=== PATIENT | female | born 1970 | race African-American/Black ===

== ENCOUNTER 2021-12-19 13:18 | Emergency (ER) | payer SELFPAY ==
[~2021-12-19] VITALS: Ht 167 cm; Wt 56.6 kg
[2021-12-19] MEDS ORDERED: RT-ALBUTEROL SULF 2.5 MG/3 ML PRE-MIX VIAL ONE (13:27)
[2021-12-19] MEDS ORDERED: RT-ALBUTEROL/IPRATROPIUM 3 ML (DUONEB) VIAL ONE (13:27)
[2021-12-19] MEDS ORDERED: RT-ALBUTEROL/IPRATROPIUM 3 ML (DUONEB) VIAL INH ONE (13:30)
[2021-12-19] MEDS ORDERED: RT-ALBUTEROL SULF 2.5 MG/3 ML PRE-MIX VIAL INH STA (13:30)
[2021-12-19] MEDS ORDERED: NS IV 1000 ML 1,000 ML IV SCH (13:30)
[2021-12-19] MEDS ORDERED: methylPREDNISolone 125 MG (Solu-MEDROL) VIAL IV STA (13:30)
[2021-12-19] MEDS ORDERED: morphine INJ 10 MG/ML 1ML (SYR OR VIAL) IVP STA (13:30)
--- NOTE | 2021-12-19 13:30 | ED Respiratory ---
General Chief Complaint: Respiratory Problems Stated Complaint: CHEST PAIN - COUGH Source: patient Exam Limitations: no limitations History of Present Illness Date Seen by Provider: Dec 19, 2021 Time Seen by Provider: 13:15 Initial Comments Patient to ER by EMS with chief complaint of couple days progressively worsening shortness of air coughing fits. She been using ykef-uuk-wdxrymi cough medicines and Tylenol for her headache. She has history of COPD. She is not been on steroids recently. Has not been on antibiotics. No fevers or chills for her or EMS. She maintain oxygen saturations in the upper 90s to 100% on room air per EMS however she is having nonstop coughing and strong expiratory wheezes. She has an albuterol proair inhaler which she has been using without success. She was given a DuoNeb en route which she says helped very minimally. She is also having pain up under her left ribs anteriorly. No history of heart disease. No nausea vomiting diarrhea. No known sick contacts. She does not have a primary care doctor locally. Allergies and Home Medications Allergies Coded Allergies: No Known Drug Allergies (Unverified , 12/19/21) Patient Home Medication List Home Medication List Reviewed: Yes Review of Systems Review of Systems Constitutional: No chills, No fever; malaise, weakness EENTM: No ear discharge, No ear pain Respiratory: cough, phlegm, short of breath, wheezing Cardiovascular: see HPI, chest pain; No edema, No Hx of Intervention, No palpitations Gastrointestinal: No abdominal pain, No nausea, No vomiting Genitourinary: No decreased output, No discharge, No dysuria Musculoskeletal: No back pain, No joint pain Skin: No change in color, No dryness, No lesions All Other Systems Reviewed Negative Unless Noted: Yes Past Ccbtyqf-Uzdpyr-Twokkf Hx Patient Social History Tobacco Use?: Yes Tobacco type used: Cigarettes Smoking Status: Current Everyday Smoker Use of E-Cig and/or Vaping dev: No Substance use?: No Alcohol Use?: Yes Physical Exam Vital Signs - First Documented 12/19/21 12/19/21 13:18 14:53 Temp 37.0 Pulse 102 Resp 24 B/P (MAP) 125/106 (112) Pulse Ox 100 O2 Delivery Room Air O2 Flow Rate 0 FiO2 21 Capillary Refill : Height: '" Weight: lbs. oz. kg; BMI Method: General Appearance: WD/WN, moderate distress Eyes: Bilateral Eye Normal Inspection, Bilateral Eye PERRL, Bilateral Eye EOMI HEENT: PERRL/EOMI, normal ENT inspection, TMs normal, pharynx normal Neck: non-tender, full range of motion, supple, normal inspection Respiratory: No chest non-tender (Left anterior lower chest and ribs are tender to palpation); respiratory distress (Moderate with tripoding, rocking, pursed lip breathing, 40 breaths a minute maintaining oxygen saturation of 100%), accessory muscle use, rales (Bibasilar), wheezing, expiration (Severely prolonged) Cardiovascular: normal peripheral pulses, regular rate, rhythm, no edema, tachycardia (130) Gastrointestinal: normal bowel sounds, non tender (No tenderness especially in the left upper quadrant or epigastric region.), soft Extremities: non-tender, normal inspection, normal capillary refill Neurologic/Psychiatric: lapidarist II-XII nml as tested, no motor/sensory deficits, alert; No normal mood/affect (Anxious); oriented x 3 Focused Exam Lactate Level 12/19/21 13:22: Lactic Acid Level 1.97 Lactic Acid Level Laboratory Tests Test 12/19/21 13:22 Lactic Acid Level 1.97 MMOL/L (0.50-2.00) Progress/Results/Core Measures Suspected Sepsis SIRS Temperature: Pulse: Respiratory Rate: Laboratory Tests 12/19/21 13:22: White Blood Count 5.1 Blood Pressure / Mean: 12/19/21 13:22: Lactic Acid Level 1.97 Laboratory Tests 12/19/21 13:22: Creatinine 1.21, INR Comment 1.3, Platelet Count 135, Total Bilirubin 0.6 Results/Orders Lab Results Laboratory Tests Test 12/19/21 13:22 12/19/21 13:34 12/19/21 13:45 Range/Units White Blood Count 5.1 4.3-11.0 10^3/uL Red Blood Count 3.44 L 3.80-5.11 10^6/uL Hemoglobin 10.2 L 11.5-16.0 g/dL Hematocrit 31 L 35-52 % Mean Corpuscular Volume 89 80-99 fL Mean Corpuscular Hemoglobin 30 25-34 pg Mean Corpuscular Hemoglobin Concent 33 32-36 g/dL Red Cell Distribution Width 17.4 H 10.0-14.5 % Platelet Count 135 130-400 10^3/uL Mean Platelet Volume 8.6 L 9.0-12.2 fL Immature Granulocyte % (Auto) 0 % Neutrophils (%) (Auto) 37 L 42-75 % Lymphocytes (%) (Auto) 49 H 12-44 % Monocytes (%) (Auto) 13 H 0-12 % Eosinophils (%) (Auto) 1 0-10 % Basophils (%) (Auto) 0 0-10 % Neutrophils # (Auto) 1.9 1.8-7.8 10^3/uL Lymphocytes # (Auto) 2.5 1.0-4.0 10^3/uL Monocytes # (Auto) 0.7 0.0-1.0 10^3/uL Eosinophils # (Auto) 0.1 0.0-0.3 10^3/uL Basophils # (Auto) 0.0 0.0-0.1 10^3/uL Immature Granulocyte # (Auto) 0.0 0.0-0.1 10^3/uL Neutrophils % (Manual) 42 % Lymphocytes % (Manual) 43 % Monocytes % (Manual) 14 % Band Neutrophils 1 % Polychromasia SLIGHT Anisocytosis MODERATE Spherocytes SLIGHT Target Cells MODERATE Prothrombin Time 16.4 H 12.2-14.7 SEC INR Comment 1.3 0.8-1.4 Activated Partial Thromboplast Time 35 24-35 SEC Sodium Level 137 135-145 MMOL/L Potassium Level 4.4 3.6-5.0 MMOL/L Chloride Level 103 98-107 MMOL/L Carbon Dioxide Level 20 L 21-32 MMOL/L Anion Gap 14 5-14 MMOL/L Blood Urea Nitrogen 30 H 7-18 MG/DL Creatinine 1.21 0.60-1.30 MG/DL Estimat Glomerular Filtration Rate 54 BUN/Creatinine Ratio 25 Glucose Level 86 70-105 MG/DL Lactic Acid Level 1.97 0.50-2.00 MMOL/L Calcium Level 9.0 8.5-10.1 MG/DL Corrected Calcium 9.2 8.5-10.1 MG/DL Total Bilirubin 0.6 0.1-1.0 MG/DL Aspartate Amino Transf (AST/SGOT) 73 H 5-34 U/L Alanine Aminotransferase (ALT/SGPT) 51 0-55 U/L Alkaline Phosphatase 102 40-136 U/L Troponin I < 0.028 <0.028 NG/ML Total Protein 8.1 6.4-8.2 GM/DL Albumin 3.8 3.2-4.5 GM/DL Blood Gas Puncture Site LEFT RADIAL Blood Gas Patient Temperature 37 Arterial Blood pH 7.33 *L 7.37-7.43 Arterial Blood Partial Pressure CO2 46 H 35-45 MMHG Arterial Blood Partial Pressure O2 76 L 79-93 MMHG Arterial Blood HCO3 23 23-27 MMOL/L Arterial Blood Total CO2 24.7 21.0-31.0 MMOL/L Arterial Blood Oxygen Saturation 94 94-100 % Arterial Blood Base Excess -1.8 -2.5-2.5 MMOL/L Ellis Test POSITIVE Blood Gas Ventilator Setting NO Blood Gas Inspired Oxygen 8 L Influenza Type A (RT-PCR) Not Detected Not Detecte Influenza Type B (RT-PCR) Not Detected Not Detecte SARS-CoV-2 RNA (RT-PCR) Not Detected Not Detecte My Orders Orders - JANE ANDRADE Pd/C, Chest Physio Therapy (12/19/21 13:24) Chest 1 View, Ap/Pa Only (12/19/21 13:24) Cbc With Automated Diff (12/19/21 13:24) Comprehensive Metabolic Panel (12/19/21 13:24) Blood Culture (12/19/21 13:24) Sputum Culture (12/19/21 13:24) Urinalysis (12/19/21 13:24) Urine Culture (12/19/21 13:24) Protime With Inr (12/19/21 13:24) Partial Thromboplastin Time (12/19/21 13:24) Ed Iv/Invasive Line Start (12/19/21 13:24) Ed Iv/Invasive Line Start (12/19/21 13:24) Ekg Tracing (12/19/21 13:24) Troponin I [place] (12/19/21 13:24) Vital Signs Adult Sepsis Patie Q15M (12/19/21 13:24) O2 (12/19/21 13:24) Remove Rings In Anticipation O (12/19/21 13:24) Lactic Acid Analyzer (12/19/21 13:24) Influenza A And B By Pcr (12/19/21 13:24) Covid 19 Inhouse Test (12/19/21 13:24) Albuterol/Ipra Inhalation Soln (Duoneb I (12/19/21 13:27) Albuterol Pre-Mix Nebs (Rt) (Proventil (12/19/21 13:27) Ed Iv/Invasive Line Start (12/19/21 13:30) Ns Iv 1000 Ml (Sodium Chloride 0.9%) (12/19/21 13:30) Albuterol Pre-Mix Nebs (Rt) (Proventil (12/19/21 13:30) Albuterol/Ipra Inhalation Soln (Duoneb I (12/19/21 13:30) Methylprednisolone Sod Succ (Solu-Medrol (12/19/21 13:30) Svn Small Volume Nebulizer (12/19/21 13:30) Morphine Injection (Morphine Injection (12/19/21 13:30) Cefepime Injection (Maxipime Injection) (12/19/21 13:45) Vancomycin Injection (Vancomycin Injecti (12/19/21 13:45) Aspirin Chewable Tablet (Baby Aspirin Ch (12/19/21 13:45) Arterial Blood Gas (12/19/21 13:37) Arterial Blood Draw - Obtain (12/19/21 13:37) Manual Differential (12/19/21 13:22) Vancomycin Injection (Vancomycin Injecti (12/19/21 15:00) Vancomycin Injection (Vancomycin Injecti (12/19/21 15:00) Ketorolac Injection (Toradol Injection) (12/19/21 15:45) Ed Iv/Invasive Line Start (12/19/21 15:39) Ns Iv 500 Ml (Sodium Chloride 0.9%) (12/19/21 15:45) Medications Given in ED Current Medications Medications Dose Ordered Sig/Latoya Route Start Time Stop Time Status Last Admin Dose Admin Albuterol/ Ipratropium 3 ml ONCE ONCE INH 12/19/21 13:30 12/19/21 13:32 DC 12/19/21 13:34 3 ML Aspirin 324 mg ONCE ONCE PO 12/19/21 13:45 12/19/21 13:46 DC 12/19/21 13:44 324 MG Cefepime HCl 1000 mg/Sodium Chloride 50 ml @ 100 mls/hr ONCE ONCE IV 12/19/21 13:45 12/19/21 14:14 DC 12/19/21 14:37 100 MLS/HR Ketorolac Tromethamine 30 mg ONCE ONCE IVP 12/19/21 15:45 12/19/21 15:46 DC 12/19/21 15:44 30 MG Sodium Chloride 500 ml @ 0 mls/hr Q0M ONCE IV 12/19/21 15:45 12/19/21 15:46 DC 12/19/21 15:44 0 MLS/HR Vital Signs/I&O 12/19/21 12/19/21 12/19/21 12/19/21 13:18 13:29 14:53 15:18 Temp 37.0 Pulse 102 104 Resp 24 18 B/P (MAP) 125/106 (112) 132/88 Pulse Ox 100 93 98 96 O2 Delivery Room Air Room Air O2 Flow Rate 0 FiO2 21 Capillary Refill : Progress Note #1: Time: 15:40 Progress Note After an hour-long breathing treatment and some CPT the patient is doing a little better. Chest x-ray reveals bilateral lower lobe pneumonia. COVID and flu are negative. Septic work-up was initiated as well as Solu-Medrol for her COPD exacerbation and pneumonia. Cefepime and vancomycin. 1500 cc total fluids were ordered. She is still having some pain under her left chest so we will give her some Toradol. Suspect the pain is related to her pneumonia as her initial troponin is negative. Progress Note #2: Time: 16:19 Progress Note Suspect her chest wall pain is related to pneumonia. COVID and flu are negative. She is significantly improved after an hour-long breathing treatment. She has been oxygenating 100% the entire time. She was resting quietly asleep when I walked in the room and easily aroused. She is now breathing 18 breaths/min. She is having no labored breathing or extra external work of breathing. She is no longer wheezy after an hour-long DuoNeb and CPT. Plan to put her on cefdinir and azithromycin. We did offer her a stay in the hospital and she declined at this time. We gave her good return precautions and she said if she is not getting better she will come back. We will provide her with a prescription for a nebulizer, DuoNeb, low-level prednisone 20 mg a day and instructions for follow-up with her PCP. Toradol took all of her chest wall pain away. ECG Initial ECG Impression Date: Dec 19, 2021 Initial ECG Impression Time: 13:57 Initial ECG Rate: 95 Initial ECG Rhythm: Normal Sinus Initial ECG Intervals: QT (488) Initial ECG Impression: Normal Comment Normal sinus rhythm with borderline prolonged QT interval of [address] ms[address] No clinically relevant ST elevation or depression. Diagnostic Imaging Diagonstic Imaging: Xray Plain Films/CT/US/NM/MRI: chest Comments [facility], [place] NAME: GAIL NORTON [facility] REC#: [id number] PT STATUS: REG ER : 1970 PHYSICIAN: JANE ANDRADE MD ADMIT DATE: 12/19/21/ER Signed Date of Exam:12/19/21 CHEST 1 VIEW, AP/PA ONLY EXAMINATION: Chest, one view. HISTORY: Shortness of breath. COMPARISON: None available. FINDINGS: Bibasilar opacities are present. No pleural effusion or pneumothorax. The heart size is normal. There is calcified aortic atherosclerotic plaque. No acute osseous abnormalities. IMPRESSION: 1. Bibasilar opacities, which may represent atelectasis or infection. Dictated by: Dictated on workstation # [id number] Dict: 12/19/21 1432 Trans: 12/19/21 1441 [id number] Interpreted by: MARKO ESCOBAR DO Electronically signed by: MARKO ESCOBAR DO 12/19/21 1441 Reviewed: Reviewed by Me Departure Impression Primary Impression: Pneumonia Qualified Codes: J18.9 - Pneumonia, unspecified organism Additional Impression: COPD with exacerbation Disposition: 01 HOME, SELF-CARE Condition: Improved Departure-Patient Inst. Decision time for Depature: 16:29 Patient Instructions: COPD Exacerbation, Adult ED, LOCAL PHYSICIAN LIST, Pneumonia, Adult (DC) Add. Discharge Instructions: Drink plenty of fluids. Use humidifiers vapor rubs and stay active around the house. You may return to work as soon as you are no longer dependent on the DuoNeb neb ulizer. Use the DuoNeb every 4 hours on a scheduled basis while awake for the first 4 to 6 days. Every 2 hours that you are still having some wheezing or shortness of air or coughing fit you should take another DuoNeb. You may also use your ProAir inhaler through the spacer provided. 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 Prednisone 1 tablet daily for 5 days. Cefdinir 1 capsule twice a day for 10 days. Azithromycin 2 tablets today followed by 1 tablet every day afterwards until it is gone. Tylenol 1000 mg every 8 hours as needed for pain. Ibuprofen 800 mg every 8 hours needed for pain. Seek a local physician and follow-up in 1 to 2 weeks if possible. If you are having intractable coughing fits, shortness of air, wheezing or worsening symptoms despite the above therapies then return to the nearest ER for further management. All discharge instructions reviewed with patient and/or family. Voiced understanding. Scripts Nebulizer and Compressor (Compressor Nebulizer System) 1 Each Each EACH MC Q4H PRN for WHEEZING, #1 0 Refills Prov: JANE ANDRADE 12/19/21 Azithromycin (Azithromycin) 250 Mg Tablet 250 MG PO UD, #6 TAB 0 Refills TAKE 2 TABLETS ON DAY ONE THEN TAKE 1 TABLET DAILY FOR FOUR MORE DAYS Prov: JANE ANDRADE 12/19/21 Cefdinir (Cefdinir) 300 Mg Capsule 300 MG PO BID for 10 Days, #20 CAP 0 Refills Prov: JANE ANDRADE 12/19/21 Ipratropium/Albuterol Sulfate (Iprat-Albut 0.5-3(2.5) mg/3 ml) 3 Ml Ampul.neb 3 ML IH Q4H PRN for SHORTNESS OF BREATH, #60 EACH 0 Refills Prov: JANE ANDRADE 12/19/21 Prednisone (Prednisone) 20 Mg Tab 20 MG PO DAILY for 5 Days, #5 TAB 0 Refills Prov: JANE ANDRADE 12/19/21 Work/School Note: Work Release Form Date Seen in the Emergency Department: Dec 19, 2021 Return to Work: Dec 25, 2021 Restrictions: No Restrictions Other Restrictions Listed Below: May return as soon as no longer relying on DuoNeb nebulizer. JANE ANDRADE Dec 19, 2021 13:30
[2021-12-19 13:35] LABS: BASOPHILS % (AUTO) 0 % (0-10); EOSINOPHILS # (AUTO) 0.1 10^3/uL (0.0-0.3); EOSINOPHILS % (AUTO) 1 % (0-10); HEMATOCRIT 31 % (35-52); HEMOGLOBIN 10.2 g/dL (11.5-16.0); LYMPHOCYTES # (AUTO) 2.5 10^3/uL (1.0-4.0); LYMPHOCYTES % (AUTO) 49 % (12-44); MEAN CORPUSCULAR HEMOGLOBIN 30 pg (25-34); MEAN CORPUSCULAR HGB CONC 33 g/dL (32-36); MEAN CORPUSCULAR VOLUME 89 fL (80-99); MEAN PLATELET VOLUME 8.6 fL (9.0-12.2); MONOCYTES # (AUTO) 0.7 10^3/uL (0.0-1.0); MONOCYTES % (AUTO) 13 % (0-12); NEUTROPHILS # (AUTO) 1.9 10^3/uL (1.8-7.8); NEUTROPHILS % (AUTO) 37 % (42-75); PLATELET COUNT 135 10^3/uL (130-400); WHITE BLOOD COUNT 5.1 10^3/uL (4.3-11.0)
[2021-12-19 13:42] LABS: ALBUMIN 3.8 GM/DL (3.2-4.5); CHLORIDE 103 MMOL/L (98-107)
[2021-12-19 13:43] LABS: POTASSIUM 4.4 MMOL/L (3.6-5.0); SODIUM 137 MMOL/L (135-145)
[2021-12-19 13:45] LABS: GLUCOSE 86 MG/DL (70-105); TOTAL PROTEIN 8.1 GM/DL (6.4-8.2)
[2021-12-19] MEDS ORDERED: CEFEPIME INJECTION 1,000 MG in NS (IVPB) 50 ML IV ONE (13:45)
[2021-12-19] MEDS ORDERED: ASPIRIN 81 MG CHEW (CHILDREN'S ASA) PO ONE (13:45)
[2021-12-19] MEDS ORDERED: VANCOMYCIN INJECTION 1,000 MG in NS (IVPB) 250 ML IV ONE (13:45)
[2021-12-19 13:46] LABS: CARBON DIOXIDE 20 MMOL/L (21-32)
[2021-12-19 13:47] LABS: BILIRUBIN,TOTAL 0.6 MG/DL (0.1-1.0)
[2021-12-19 13:48] LABS: ALKALINE PHOSPHATASE 102 U/L (40-136); CREATININE SERUM 1.21 MG/DL (0.60-1.30); GFR ESTIMATED 54
[2021-12-19 13:49] LABS: BUN/CREATININE RATIO 25; INR 1.3 (0.8-1.4); PROTHROMBIN TIME PATIENT 16.4 SEC (12.2-14.7)
[2021-12-19 13:51] LABS: ALANINE AMINOTRANSFERASE 51 U/L (0-55)
[2021-12-19 13:53] LABS: ABG BASE EXCESS -1.8 MMOL/L (-2.5-2.5); ABG OXYGEN SATURATION 94 % (94-100); ABG PCO2 46 MMHG (35-45); ABG PO2 76 MMHG (79-93); ABG TCO2 24.7 MMOL/L (21.0-31.0)
[2021-12-19 13:54] LABS: ABG PH 7.33 (7.37-7.43); ALLENS TEST POSITIVE; INSPIRED O2 8 L; PATIENT TEMP 37; VENTILATOR NO
[2021-12-19 14:22] LABS: BAND NEUTROPHILS 1 %; LYMPHOCYTES % (MANUAL) 43 %; MONOCYTES % (MANUAL) 14 %; NEUTROPHILS % (MANUAL) 42 %
[2021-12-19 14:23] LABS: ANISOCYTOSIS MODERATE; POLYCHROMASIA SLIGHT; SPHEROCYTES SLIGHT; TARGET CELLS MODERATE
--- NOTE | 2021-12-19 14:35 | Diagnostic Imaging Report ---
EXAMINATION: Chest, one view. HISTORY: Shortness of breath. COMPARISON: None available. FINDINGS: Bibasilar opacities are present. No pleural effusion or pneumothorax. The heart size is normal. There is calcified aortic atherosclerotic plaque. No acute osseous abnormalities. IMPRESSION: 1. Bibasilar opacities, which may represent atelectasis or infection. Dictated by: Dictated on workstation # [id number]
[2021-12-19] MEDS ORDERED: VANCOMYCIN 1250 MG/NS 250 ML IVPB IV NR ×2 (15:00)
[2021-12-19] MEDS ORDERED: VANCOMYCIN INJECTION 1,000 MG in NS (IVPB) 250 ML IV NR (15:00)
[2021-12-19] MEDS ORDERED: KETOROLAC 30 MG/ML VIAL IVP ONE (15:45)
[2021-12-19] MEDS ORDERED: NS IV 500 ML 500 ML IV ONE (15:45)
[2021-12-19] MEDS ORDERED: PRD20T PO (16:36)
[2021-12-19] MEDS ORDERED: CEFD300C3 PO (16:36)
[2021-12-19] MEDS ORDERED: IPRA3AMP31 IH (16:36)
[2021-12-19] MEDS ORDERED: NEBU-186 MC (16:36)
[2021-12-19] MEDS ORDERED: AZIT250T12 PO (16:36)
[2021-12-19 16:40] VITALS: BP 138/91
== END 2021-12-19 16:40 | disposition home or self-care (01) ==
LOC: ER 13:19
DX: J18.9 Pneumonia, unspecified organism (principal); J44.1 Chronic obstructive pulmonary disease with (acute) exacerbation; R00.0 Tachycardia, unspecified; F17.210 Nicotine dependence, cigarettes, uncomplicated; Z20.822 Contact with and (suspected) exposure to COVID-19
CPT/HCPCS: 36415; 71045; 80053; 82805; 83605; 84484; 85007; 85027; 85610; 85730; 87040; 87636; 93005; 94640; 94644

== ENCOUNTER 2022-01-19 15:17 | Emergency (ER) | payer SELFPAY ==
[~2022-01-19] VITALS: Ht 167.7 cm; Wt 56.7 kg
[~2022-01-19 15:17] MED LIST: AZIT250T12 PO; CEFD300C3 PO; IPRA3AMP31 IH; NEBU-186 MC; PRD20T PO
[2022-01-19 15:27] VITALS: BP 140/95
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
== END 2022-01-19 16:10 | disposition left against medical advice (07) ==
LOC: EDUNIT# 15:17 → ER 15:18
DX: M79.602 Pain in left arm (principal); M25.512 Pain in left shoulder; R07.81 Pleurodynia; Y00.XXXA Assault by blunt object, initial encounter
CPT/HCPCS: 99283

== ENCOUNTER 2022-01-19 21:08 | Emergency (ER) | payer SELFPAY ==
[~2022-01-19] VITALS: Ht 167.6 cm; Wt 54.4 kg
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
[2022-01-19] MEDS ORDERED: ORPHENADRINE 60 MG/2 ML (NORFLEX) AMP (ED ONLY) IV ONE (21:30)
[2022-01-19] MEDS ORDERED: KETOROLAC 30 MG/ML VIAL IVP ONE (21:30)
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
[2022-01-19 22:20] LABS: BILIRUBIN,URINE NEGATIVE (NEGATIVE); CLARITY,URINE CLEAR; COLOR,URINE YELLOW; GLUCOSE, URINE (UA) NEGATIVE (NEGATIVE); KETONES,URINE NEGATIVE (NEGATIVE); LEUKOCYTE ESTERASE ,URINE 1+ (NEGATIVE); NITRITE,URINE NEGATIVE (NEGATIVE); PH,URINE 5.5 (5-9); PROTEIN,URINE NEGATIVE (NEGATIVE)
[2022-01-19 22:35] VITALS: BP 125/95
[2022-01-19 22:36] LABS: BACTERIA,URINE TRACE /HPF; SQUAMOUS EPITHELIAL CELL,UR 0-2 /HPF
[2022-01-19 22:46] LABS: AMPHETAMINE SCREEN, URINE NEGATIVE (NEGATIVE); BARBITURATE SCREEN URINE NEGATIVE (NEGATIVE); BENZODIAZEPINES SCREEN URINE NEGATIVE (NEGATIVE); CANNABINOID SCREEN, URINE NEGATIVE (NEGATIVE); COCAINE SCREEN URINE NEGATIVE (NEGATIVE); METHADONE STAT NEGATIVE (NEGATIVE); OPIATE SCREEN URINE NEGATIVE (NEGATIVE); OXYCODONE STAT NEGATIVE (NEGATIVE); PROPOXYPHENE STAT NEGATIVE (NEGATIVE); TRICYCLIC ANTIDEPRESSANTS SCRE NEGATIVE (NEGATIVE)
== END 2022-01-19 22:39 | disposition home or self-care (01) ==
LOC: EDUNIT# 21:08 → ER 21:10
DX: S40.012A Contusion of left shoulder, initial encounter (principal); S50.11XA Contusion of right forearm, initial encounter; R51.9 Headache, unspecified; R07.81 Pleurodynia; I10 Essential (primary) hypertension; Z91.14 Patient's other noncompliance with medication regimen; Y00.XXXA Assault by blunt object, initial encounter
CPT/HCPCS: 71045; 73030; 73080; 80306; 81000; 87088

== ENCOUNTER 2022-05-01 23:12 | Emergency (ER) | payer SELFPAY ==
[~2022-05-01] VITALS: Ht 167.7 cm; Wt 56.7 kg
[2022-05-01 23:14] VITALS: BP 121/101
[2022-05-01] MEDS ORDERED: ONDANSETRON 4 MG/2 ML (SDV) Z0FRAN IVP ONE (23:30)
[2022-05-01] MEDS ORDERED: fentaNYL INJ 100 MCG/2 ML AMP IVP ONE (23:30)
[2022-05-01 23:39] LABS: BASOPHILS % (AUTO) 0 % (0-10); EOSINOPHILS % (AUTO) 1 % (0-10); HEMATOCRIT 30 % (35-52); HEMOGLOBIN 9.9 g/dL (11.5-16.0); LYMPHOCYTES # (AUTO) 2.3 10^3/uL (1.0-4.0); LYMPHOCYTES % (AUTO) 40 % (12-44); MEAN CORPUSCULAR HEMOGLOBIN 28 pg (25-34); MEAN CORPUSCULAR HGB CONC 33 g/dL (32-36); MEAN CORPUSCULAR VOLUME 85 fL (80-99); MEAN PLATELET VOLUME 8.8 fL (9.0-12.2); MONOCYTES # (AUTO) 0.9 10^3/uL (0.0-1.0); MONOCYTES % (AUTO) 15 % (0-12); NEUTROPHILS # (AUTO) 2.6 10^3/uL (1.8-7.8); NEUTROPHILS % (AUTO) 44 % (42-75); PLATELET COUNT 104 10^3/uL (130-400); WHITE BLOOD COUNT 5.8 10^3/uL (4.3-11.0)
[2022-05-01 23:51] LABS: POTASSIUM 3.7 MMOL/L (3.6-5.0)
[2022-05-01 23:52] LABS: CALCIUM 9.3 MG/DL (8.5-10.1)
[2022-05-01 23:54] LABS: TOTAL PROTEIN 8.2 GM/DL (6.4-8.2)
[2022-05-01 23:55] LABS: BILIRUBIN,TOTAL 0.7 MG/DL (0.1-1.0)
[2022-05-01 23:58] LABS: CREATININE SERUM 1.61 MG/DL (0.60-1.30)
[2022-05-02] LABS: MAGNESIUM 1.5 MG/DL (1.6-2.4)
[2022-05-02 00:21] LABS: TSH (THYROID ANALYZER) 0.7 UIU/ML (0.35-4.94)
[2022-05-02] MEDS ORDERED: MAGNESIUM 1 GM/100 ML IVPB 100 ML IV ONE (00:30)
[2022-05-02] MEDS ORDERED: NS IV 1000 ML 1,000 ML IV SCH (00:30)
[2022-05-02] MEDS ORDERED: fentaNYL INJ 100 MCG/2 ML AMP IVP ONE (00:45)
[2022-05-02 01:26] LABS: BILIRUBIN,URINE NEGATIVE (NEGATIVE); CLARITY,URINE CLEAR; COLOR,URINE YELLOW; GLUCOSE, URINE (UA) NEGATIVE (NEGATIVE); KETONES,URINE NEGATIVE (NEGATIVE); LEUKOCYTE ESTERASE ,URINE 2+ (NEGATIVE); NITRITE,URINE NEGATIVE (NEGATIVE); PROTEIN,URINE NEGATIVE (NEGATIVE)
[2022-05-02 02:03] LABS: AMPHETAMINE SCREEN, URINE NEGATIVE (NEGATIVE); BACTERIA,URINE MODERATE /HPF; BARBITURATE SCREEN URINE NEGATIVE (NEGATIVE); BENZODIAZEPINES SCREEN URINE NEGATIVE (NEGATIVE); CANNABINOID SCREEN, URINE POSITIVE (NEGATIVE); COCAINE SCREEN URINE NEGATIVE (NEGATIVE); METHADONE STAT NEGATIVE (NEGATIVE); OPIATE SCREEN URINE NEGATIVE (NEGATIVE); OXYCODONE STAT NEGATIVE (NEGATIVE); PROPOXYPHENE STAT NEGATIVE (NEGATIVE); RBC,URINE 0-2 /HPF; TRICYCLIC ANTIDEPRESSANTS SCRE NEGATIVE (NEGATIVE)
[2022-05-02 02:04] LABS: AMORPHOUS SEDIMENT,UR FEW AMOR URATES /LPF
--- NOTE | 2022-05-02 04:20 | ED Neurological Problem ---
General Chief Complaint: Neurological Problems Stated Complaint: SEIZURE,ABD PAIN Nursing Triage Note: pt to room by [facility]. ems reports pt had a seizure and was awake and oriented on their arrival. ems does report witnessing seizure like activity for approx 15 seconds. pt reports she hit her head and her head and neck hurt on arrival. c-collar placed by this rn during triage at 2318. pt also complaining of abd pain for a couple of days. pt is A&Ox4 on arrival, speech normal Source: patient, EMS Exam Limitations: no limitations History of Present Illness Date Seen by Provider: May 02, 2022 Time Seen by Provider: 23:15 Initial Comments This 52-year-old woman presents to the emergency room via EMS after having a seizure. EMS reported she was alert and talking upon their initial assessment. She did have a seizure lasting about 15 seconds while in route. Patient complained of headache and neck pain upon arrival and c-collar was applied. She also complained of abdominal pain for the past few days. She admits to drinking alcohol including 2 martinis and a beer tonight. She has been taking Tylenol and Pepto-Bismol for her abdominal pain without improvement. She reports a recent admission at [facility] for seizures. She also has a history of neuropathy and diabetes. Allergies and Home Medications Allergies Coded Allergies: No Known Drug Allergies (Unverified , 12/19/21) Patient Home Medication List Home Medication List Reviewed: Yes Azithromycin (Azithromycin) 250 Mg Tablet, 250 MG PO UD Prescribed by: JANE ANDRADE on 12/19/211635 Cefdinir (Cefdinir) 300 Mg Capsule, 300 MG PO BID Prescribed by: JANE ANDRADE on 12/19/211635 Ipratropium/Albuterol Sulfate (Iprat-Albut 0.5-3(2.5) mg/3 ml) 3 Ml Ampul.neb, 3 ML IH Q4H PRN for SHORTNESS OF BREATH Prescribed by: JANE ANDRADE on 12/19/211635 Nebulizer and Compressor (Compressor Nebulizer System) 1 Each Each, EACH MC Q4H PRN for WHEEZING, (DME) Prescribed by: JANE ANDRADE on 12/19/211635 Prednisone (Prednisone) 20 Mg Tab, 20 MG PO DAILY Prescribed by: JANE ANDRADE on 4/12/22 1636 Review of Systems Review of Systems Constitutional: see HPI Eyes: No Symptoms Reported Ears, Nose, Mouth, Throat: no symptoms reported Respiratory: no symptoms reported Cardiovascular: no symptoms reported Gastrointestinal: see HPI Genitourinary: no symptoms reported Musculoskeletal: see HPI Skin: no symptoms reported Psychiatric/Neurological: See HPI Endocrine: No Symptoms Reported Hematologic/Lymphatic: No Symptoms Reported Past Wksnfec-Xlbvlt-Ilkuku Hx Patient Social History Tobacco Use?: Yes Tobacco type used: Cigarettes Smoking Status: Current Everyday Smoker Use of E-Cig and/or Vaping dev: No Substance use?: Yes Substance type: Marijuana Substance frequency: Daily Alcohol Use?: Yes Alcohol type: Beer, Hard Liquor Alcohol Frequency: Couple times a week Immunizations Up To Date Influenza Vaccine Up-to-Date: No; Not Current First/Initial COVID19 Vaccinat: NO Past Medical History Surgeries: Yes Gallbladder Respiratory: No Cardiac: Yes Hypertension Neurological: Yes Neuropathy, Seizure Disorder Reproductive Disorders: No Genitourinary: No Gastrointestinal: No Musculoskeletal: No Endocrine: Yes Diabetes, Non-Insulin dep HEENT: No Cancer: No Psychosocial: No Physical Exam Vital Signs Vital Signs - First Documented 05/01/22 23:14 Temp 36.9 Pulse 100 Resp 14 B/P (MAP) 121/101 (108) Pulse Ox 99 Capillary Refill : Height, Weight, BMI Height: '" Weight: lbs. oz. 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, no motor/sensory deficits, alert, normal mood/affect, oriented x 3 Crainal Nerves: normal hearing, normal speech Motor/Sensory: no motor deficit, no sensory deficit Skin: normal color, warm/dry Progress/Results/Core Measures Results/Orders Lab Results Laboratory Tests Test 05/01/22 01:18 05/01/22 23:27 Range/Units Urine Color YELLOW Urine Clarity CLEAR Urine pH 6.0 5-9 Urine Specific [place] 1.020 1.016-1.022 Urine Protein NEGATIVE NEGATIVE Urine Glucose (UA) NEGATIVE NEGATIVE Urine Ketones NEGATIVE NEGATIVE Urine Nitrite NEGATIVE NEGATIVE Urine Bilirubin NEGATIVE NEGATIVE Urine Urobilinogen 0.2 < = 1.0 MG/DL Urine Leukocyte Esterase 2+ H NEGATIVE Urine RBC (Auto) NEGATIVE NEGATIVE Urine RBC 0-2 /HPF Urine WBC 10-25 H /HPF Urine Squamous Epithelial Cells 2-5 /HPF Urine Crystals PRESENT H /LPF Urine Amorphous Sediment FEW HERB URATES H /LPF Urine Bacteria MODERATE H /HPF Urine Casts PRESENT /LPF Urine Hyaline Casts 10-25 H /LPF Urine Mucus NEGATIVE /LPF Urine Culture Indicated YES Urine Opiates Screen NEGATIVE NEGATIVE Urine Oxycodone Screen NEGATIVE NEGATIVE Urine Methadone Screen NEGATIVE NEGATIVE Urine Propoxyphene Screen NEGATIVE NEGATIVE Urine Barbiturates Screen NEGATIVE NEGATIVE Ur Tricyclic Antidepressants Screen NEGATIVE NEGATIVE Urine Phencyclidine Screen NEGATIVE NEGATIVE Urine Amphetamines Screen NEGATIVE NEGATIVE Urine Methamphetamines Screen NEGATIVE NEGATIVE Urine Benzodiazepines Screen NEGATIVE NEGATIVE Urine Cocaine Screen NEGATIVE NEGATIVE Urine Cannabinoids Screen POSITIVE H NEGATIVE White Blood Count 5.8 4.3-11.0 10^3/uL Red Blood Count 3.49 L 3.80-5.11 10^6/uL Hemoglobin 9.9 L 11.5-16.0 g/dL Hematocrit 30 L 35-52 % Mean Corpuscular Volume 85 80-99 fL Mean Corpuscular Hemoglobin 28 25-34 pg Mean Corpuscular Hemoglobin Concent 33 32-36 g/dL Red Cell Distribution Width 16.6 H 10.0-14.5 % Platelet Count 104 L 130-400 10^3/uL Mean Platelet Volume 8.8 L 9.0-12.2 fL Immature Granulocyte % (Auto) 0 % Neutrophils (%) (Auto) 44 42-75 % Lymphocytes (%) (Auto) 40 12-44 % Monocytes (%) (Auto) 15 H 0-12 % Eosinophils (%) (Auto) 1 0-10 % Basophils (%) (Auto) 0 0-10 % Neutrophils # (Auto) 2.6 1.8-7.8 10^3/uL Lymphocytes # (Auto) 2.3 1.0-4.0 10^3/uL Monocytes # (Auto) 0.9 0.0-1.0 10^3/uL Eosinophils # (Auto) 0.0 0.0-0.3 10^3/uL Basophils # (Auto) 0.0 0.0-0.1 10^3/uL Immature Granulocyte # (Auto) 0.0 0.0-0.1 10^3/uL Sodium Level 136 135-145 MMOL/L Potassium Level 3.7 3.6-5.0 MMOL/L Chloride Level 106 98-107 MMOL/L Carbon Dioxide Level 15 L 21-32 MMOL/L Anion Gap 15 H 5-14 MMOL/L Blood Urea Nitrogen 33 H 7-18 MG/DL Creatinine 1.61 H 0.60-1.30 MG/DL Estimat Glomerular Filtration Rate 38 BUN/Creatinine Ratio 20 Glucose Level 97 70-105 MG/DL Calcium Level 9.3 8.5-10.1 MG/DL Corrected Calcium 9.3 8.5-10.1 MG/DL Magnesium Level 1.5 L 1.6-2.4 MG/DL Total Bilirubin 0.7 0.1-1.0 MG/DL Aspartate Amino Transf (AST/SGOT) 148 H 5-34 U/L Alanine Aminotransferase (ALT/SGPT) 83 H 0-55 U/L Alkaline Phosphatase 250 H 40-136 U/L C-Reactive Protein High Sensitivity 0.08 0.00-0.50 MG/DL Total Protein 8.2 6.4-8.2 GM/DL Albumin 4.0 3.2-4.5 GM/DL Lipase 118 H 8-78 U/L TSH [place] Testing 0.70 0.35-4.94 UIU/ML Serum Test, Qualitative NEGATIVE NEGATIVE Serum Alcohol 219 H <10 MG/DL Influenza Type A (RT-PCR) Not Detected Not Detecte Influenza Type B (RT-PCR) Not Detected Not Detecte SARS-CoV-2 RNA (RT-PCR) Not Detected Not Detecte My Orders Orders - IVONNE JAMISON MD Cbc With Automated Diff (05/01/22 23:15) Comprehensive Metabolic Panel (05/01/22 23:15) Lipase (05/01/22 23:15) Ua Culture If Indicated (05/01/22 23:15) Ed Iv/Invasive Line Start (05/01/22 23:15) Alcohol (05/01/22 23:28) Hs C Reactive Protein (05/01/22 23:28) Drug Screen Stat (Urine) (05/01/22 23:28) Magnesium (05/01/22 23:28) Thyroid Analyzer (05/01/22 23:28) Ondansetron Injection (Zofran Injectio (05/01/22 23:30) Levetiracetam Injection (Keppra Injectio (05/01/22 23:30) Fentanyl Inj (Sublimaze Injection) (05/01/22 23:30) Covid 19 Inhouse Test (05/01/22 23:30) Influenza A And B By Pcr (05/01/22 23:30) Hcg,Qualitative Serum (05/01/22 23:30) Ct Head/Cervical Spine Wo (05/02/22 00:01) Ct Abdomen/Pelvis Wo (05/02/22 00:20) Ns Iv 1000 Ml (Sodium Chloride 0.9%) (05/02/22 00:30) Magnesium 1 Gm/100 Ml Ivpb (Magnesium Adams (05/02/22 00:30) Fentanyl Inj (Sublimaze Injection) (05/02/22 00:45) Urine Culture (05/01/22 01:18) Medications Given in ED Current Medications Medications Dose Ordered Sig/Latoya Route Start Time Stop Time Status Last Admin Dose Admin Fentanyl Citrate 50 mcg ONCE ONCE IVP 05/01/22 23:30 05/01/22 23:33 DC 05/01/22 23:44 50 MCG Fentanyl Citrate 50 mcg ONCE ONCE IVP 05/02/22 00:45 05/02/22 00:46 DC 05/02/22 00:51 50 MCG Magnesium Sulfate/ Dextrose 100 ml @ 100 mls/hr ONCE ONCE IV 05/02/22 00:30 05/02/22 01:29 DC 05/02/22 00:38 100 MLS/HR Ondansetron HCl 8 mg ONCE ONCE IVP 05/01/22 23:30 05/01/22 23:33 DC 05/01/22 23:44 8 MG Vital Signs/I&O 05/01/22 23:14 Temp 36.9 Pulse 100 Resp 14 B/P (MAP) 121/101 (108) Pulse Ox 99 Blood Pressure Mean: 108 Progress Progress Note : Progress Note Symptoms were treated with Zofran and fentanyl. C-collar was applied and cleared after review of CT report. Electrolyte replacement was ordered. CT of the abdomen and pelvis was obtained to evaluate her abdominal pain. Patient left before results could be reviewed with her. She was also found to have urinary tract infection which likewise went untreated as she left AMA. IV flu ids were infused. Diagnostic Imaging Diagonstic Imaging: CT Plain Films/CT/US/NM/MRI: c-spine, head Comments CT head and cervical spine statrad report reviewed. No acute injuries identified. Diagonstic Imaging: CT Plain Films/CT/US/NM/MRI: abdomen, pelvis Comments CT abdomen and pelvis stat rad report reviewed. No acute pathology is identifi ed. Departure Impression Primary Impression: Seizure Additional Impressions: Alcohol intoxication Qualified Codes: F10.929 - Alcohol use, unspecified with intoxication, unspecified Acute kidney injury Hypomagnesemia Pancreatitis Qualified Codes: K85.20 - Alcohol induced acute pancreatitis without necrosis or infection Abdominal pain Qualified Codes: R10.84 - Generalized abdominal pain Urinary tract infection Qualified Codes: N39.0 - Urinary tract infection, site not specified Left against medical advice Disposition: 07 AGAINST MEDICAL ADVICE Condition: Against Medical Advice Departure-Patient Inst. Referrals: NO,LOCAL PHYSICIAN (PCP) Primary Care Physician IVONNE JAMISON MD May 02, 2022 04:20
--- NOTE | 2022-05-02 06:07 | Diagnostic Imaging Report ---
PROCEDURE: CT abdomen and pelvis without contrast. TECHNIQUE: Multiple contiguous axial images were obtained through the abdomen and pelvis without the use of intravenous contrast. Auto Exposure Controls were utilized during the CT exam to meet ALARA standards for radiation dose reduction. INDICATION: Abdominal pain COMPARISON: None FINDINGS: Lung bases demonstrate scarring in the left lower lobe. There is no pleural effusion or pneumothorax. The heart is normal in size. The liver demonstrates no focal lesions. There is some nodularity of the contour consistent with cirrhosis. Cholecystectomy clips are noted. There is enlargement of the common bile duct, measuring up to 1.9 cm. No calcified stones are seen. The spleen appears normal. The pancreas is normal. The adrenal glands appear normal. The kidneys demonstrate no hydronephrosis or obstructing calculi. The appendix is normal. The bowel loops are nondistended without obstruction. No free fluid or free air is seen. There is no significant lymphadenopathy. There is calcific atherosclerosis throughout the aorta. No acute osseous abnormality is seen. IMPRESSION: 1. Cirrhotic morphology of the liver. 2. Dilated common bile duct. This is likely due to postcholecystectomy change. If indicated based on clinical exam and liver function tests, MRCP could be considered. No significant changes from the preliminary report. Dictated by: Dictated on workstation # [id number]
--- NOTE | 2022-05-02 07:53 | Diagnostic Imaging Report ---
Clinical indications: Patient status post seizure and fall with head pain. Exam: Head CT without IV contrast with sagittal and coronal reformations. Axial CT scan of the cervical spine with sagittal and coronal reformations. Auto Exposure Controls were utilized during the CT exam to meet ALARA standards for radiation dose reduction. Comparison: None. Findings: Head CT: There is no evidence of acute cerebral infarct, intracranial hemorrhage, or gross mass effect. The brain parenchymal volume appears appropriate for patient's age. There is normal barr-white matter distinction. There is no significant midline shift or herniation. There is no evidence of hydrocephalus. The basal cisterns are unremarkable. The skull, extracranial soft tissue, and orbits are unremarkable. The paranasal sinuses are unremarkable. Temporal bones show no significant abnormality. Cervical spine: There is no acute cervical spine fracture or dislocation. There is reversal of cervical lordosis which is nonspecific. There is no significant bony central canal or neural foramen narrowing. The neck soft tissue structures show no significant abnormality. Visualized upper lung puentes are clear. Impression: 1: There is no evidence of acute intracranial process. There is no skull fracture. 2: There is no acute cervical spine fracture or dislocation. 3: There is reversal of cervical lordosis which is nonspecific. I agree with stat rad report Dictated by: Dictated on workstation # [id number]
== END 2022-05-02 01:45 | disposition left against medical advice (07) ==
LOC: EDUNIT# 23:12 → ER 23:14
DX: N39.0 Urinary tract infection, site not specified (principal); K85.90 Acute pancreatitis without necrosis or infection, unspecified; E83.42 Hypomagnesemia; N17.9 Acute kidney failure, unspecified; F10.129 Alcohol abuse with intoxication, unspecified; G40.909 Epilepsy, unspecified, not intractable, without status epilepticus; F17.210 Nicotine dependence, cigarettes, uncomplicated; Z20.822 Contact with and (suspected) exposure to COVID-19; Z28.310 Unvaccinated for COVID-19
CPT/HCPCS: 70450; 72125; 74176; 80053; 80306; 81000; 83690; 83735; 84443; 84703; 85025; 86141; 87088; 87636; 96365; 96375; 96376; 99283; G0480; 36415; 80320

== ENCOUNTER 2022-05-05 19:23 | Emergency (ER) | payer SELFPAY ==
[~2022-05-05] VITALS: Ht 168 cm; Wt 59.0 kg
[2022-05-05 19:23] VITALS: BP 123/89
[2022-05-05 19:52] LABS: BASOPHILS % (AUTO) 1 % (0-10); EOSINOPHILS % (AUTO) 0 % (0-10); HEMATOCRIT 31 % (35-52); HEMOGLOBIN 10.5 g/dL (11.5-16.0); LYMPHOCYTES # (AUTO) 1.6 10^3/uL (1.0-4.0); LYMPHOCYTES % (AUTO) 43 % (12-44); MEAN CORPUSCULAR HEMOGLOBIN 29 pg (25-34); MEAN CORPUSCULAR HGB CONC 34 g/dL (32-36); MEAN CORPUSCULAR VOLUME 85 fL (80-99); MEAN PLATELET VOLUME 9.3 fL (9.0-12.2); MONOCYTES # (AUTO) 0.3 10^3/uL (0.0-1.0); MONOCYTES % (AUTO) 8 % (0-12); NEUTROPHILS # (AUTO) 1.7 10^3/uL (1.8-7.8); NEUTROPHILS % (AUTO) 48 % (42-75); PLATELET COUNT 100 10^3/uL (130-400); WHITE BLOOD COUNT 3.6 10^3/uL (4.3-11.0)
[2022-05-05 20:22] LABS: BILIRUBIN,TOTAL 0.6 MG/DL (0.1-1.0); CALCIUM 8.9 MG/DL (8.5-10.1); CREATININE SERUM 1.33 MG/DL (0.60-1.30); POTASSIUM 3.7 MMOL/L (3.6-5.0); TOTAL PROTEIN 8.2 GM/DL (6.4-8.2)
[2022-05-05 20:32] LABS: BILIRUBIN,URINE NEGATIVE (NEGATIVE); CLARITY,URINE CLEAR; COLOR,URINE YELLOW; GLUCOSE, URINE (UA) NEGATIVE (NEGATIVE); KETONES,URINE NEGATIVE (NEGATIVE); LEUKOCYTE ESTERASE ,URINE 3+ (NEGATIVE); NITRITE,URINE NEGATIVE (NEGATIVE); PH,URINE 5.5 (5-9); PROTEIN,URINE NEGATIVE (NEGATIVE)
[2022-05-05 20:41] LABS: BACTERIA,URINE MODERATE /HPF
== END 2022-05-05 20:29 | disposition left against medical advice (07) ==
LOC: EDUNIT# 19:23 → ER 19:26
DX: R10.9 Unspecified abdominal pain (principal); R19.7 Diarrhea, unspecified; K92.0 Hematemesis; Z28.310 Unvaccinated for COVID-19
CPT/HCPCS: 36415; 80053; 81000; 85025; 86141; 86850; 86900; 86901; 87088

== ENCOUNTER 2022-08-03 20:41 | Emergency (ER) | payer SELFPAY ==
[~2022-08-03] VITALS: Ht 167.7 cm; Wt 60.7 kg
--- NOTE | 2022-08-03 20:59 | ED Fall/Injury ---
General Stated Complaint: FALL/HIP PAIN Source: patient (DIFFICULT HISTORIAN AND SPEECH DIFFICULT TO UNDERSTAND. ), EMS History of Present Illness Date Seen by Provider: Aug 03, 2022 Time Seen by Provider: 20:44 Initial Comments PT [facility]--NO IMMOBILIZATION, LAYING ON RIGHT SIDE PT WAS SKATING AND FELL, LANDING ON HER LEFT SIDE C/O PAIN TO LEFT HIP AND FLANK AREA PT DID HIT HER HEAD, DENIES LOSS OF CONSCIOUSNESS DENIES NECK PAIN NO PARESTHESIAS OR MOTOR DEFICITS NO CHEST PAIN OR SHORTNESS OF BREATH NO GI SYMPTOMS OR ABDOMINAL PAIN EMS GAVE 100 MCG FENTANYL AND 4 MG MORPHINE PRIOR TO ARRIVAL PT HAS HAD A COUPLE OF SHOTS OF "FIREBALL" SOMETIME PRIOR TO SKATING NO PRIOR INJURY TO THIS HIP OR AREA OF PAIN 6 VISITS HERE SINCE HER FIRST VISIT 12/19/21, VARIOUS COMPLAINTS. HAS LEFT AMA OR LWBS MULTIPLE TIMES. PCP: EDMUND Allergies and Home Medications Allergies Coded Allergies: hydromorphone (Verified Allergy, Mild, Itching, 05/02/22) Patient Home Medication List Azithromycin (Azithromycin) 250 Mg Tablet, 250 MG PO UD Prescribed by: JANE ANDRADE on 12/19/21 163 Cefdinir (Cefdinir) 300 Mg Capsule, 300 MG PO BID Prescribed by: JANE ANDRADE on 12/19/21 163 Ipratropium/Albuterol Sulfate (Iprat-Albut 0.5-3(2.5) mg/3 ml) 3 Ml Ampul.neb, 3 ML IH Q4H PRN for SHORTNESS OF BREATH Prescribed by: JANE ANDRADE on 12/19/21 163 Nebulizer and Compressor (Compressor Nebulizer System) 1 Each Each, EACH MC Q4H PRN for WHEEZING, (DME) Prescribed by: JANE ANDRADE on 12/19/21 163 Prednisone (Prednisone) 20 Mg Tab, 20 MG PO DAILY Prescribed by: JANE ANDRADE on 12/19/21 163 Review of Systems Review of Systems Constitutional: no symptoms reported Eyes: No Symptoms Reported Ears, Nose, Mouth, Throat: no symptoms reported Respiratory: no symptoms reported Cardiovascular: no symptoms reported Gastrointestinal: no symptoms reported Genitourinary: no symptoms reported Musculoskeletal: see HPI Skin: no symptoms reported Psychiatric/Neurological: No Symptoms Reported Past Mswiklh-Slmyqm-Mkhqht Hx Patient Social History Tobacco Use?: Yes Tobacco type used: Cigarettes Smoking Status: Current Everyday Smoker Substance use?: Yes Substance type: Methamphetamine, Marijuana, Other Additional substance use comme: COCAINE Substance frequency: Daily Alcohol Use?: Yes Alcohol type: Beer, Hard Liquor Alcohol Frequency: Daily Immunizations Up To Date First/Initial COVID19 Vaccinat: NO Second COVID19 Vaccination [place]: NO Third COVID19 Vaccination Date: NO Past Medical History Surgery/Hospitalization HX: GALLBLADDER, ULCERS, NIDDM, SEIZURES Surgeries: Yes Gallbladder Respiratory: No Cardiac: Yes Hypertension Neurological: Yes Neuropathy, Seizure Disorder Reproductive Disorders: No Genitourinary: No Gastrointestinal: No Musculoskeletal: No Endocrine: Yes Diabetes, Non-Insulin dep HEENT: No Cancer: No Psychosocial: No Integumentary: No Blood Disorders: No Physical Exam Vital Signs Vital Signs - First Documented 08/03/22 20:45 Temp 36.4 Pulse 124 Resp 20 B/P (MAP) 162/112 (129) Pulse Ox 97 O2 Delivery Room Air Capillary Refill : Height, Weight, BMI Height: '" Weight: lbs. oz. kg; 20.00 BMI Method: General Appearance: WD/WN, thin, other (LAYING ON RIGHT SIDE, MOANING, WAILING AND HOLDING LEFT FLANK AREA. SPEECH RAPID AND SOMEWHAT UNINTELLIGIBLE. REEKS OF ALCOHOL) HEENT: PERRL/EOMI, other (MOST TEETH ARE MISSING, REMAINING TEETH ALL DECAYED DOWN TO GUMS. HAS A SINGLE FRONT TOOTH. ) Cardiovascular: normal peripheral pulses, regular rate, rhythm Respiratory: chest non-tender, normal breath sounds, no respiratory distress, no accessory muscle use Gastrointestinal: normal bowel sounds, soft, tenderness (LEFT FLANK ) Back: CVA tenderness (L), other (LEFT POSTERIOR RIB, LEFT FLANK, LEFT ILIAC CREST AND POSTERIOR HIP TENDERNESS. 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 ) Progress/Results/Core Measures Results/Orders Lab Results Laboratory Tests Test 08/03/22 19:58 08/03/22 20:58 08/03/22 21:30 Range/Units Serum Test, Qualitative NEGATIVE NEGATIVE White Blood Count 4.3 4.3-11.0 10^3/uL Red Blood Count 3.50 L 3.80-5.11 10^6/uL Hemoglobin 9.6 L 11.5-16.0 g/dL Hematocrit 29 L 35-52 % Mean Corpuscular Volume 83 80-99 fL Mean Corpuscular Hemoglobin 27 25-34 pg Mean Corpuscular Hemoglobin Concent 33 32-36 g/dL Red Cell Distribution Width 18.6 H 10.0-14.5 % Platelet Count 64 L 130-400 10^3/uL Mean Platelet Volume 9.8 9.0-12.2 fL Immature Granulocyte % (Auto) 1 % Neutrophils (%) (Auto) 48 42-75 % Lymphocytes (%) (Auto) 42 12-44 % Monocytes (%) (Auto) 8 0-12 % Eosinophils (%) (Auto) 0 0-10 % Basophils (%) (Auto) 1 0-10 % Neutrophils # (Auto) 2.1 1.8-7.8 10^3/uL Lymphocytes # (Auto) 1.8 1.0-4.0 10^3/uL Monocytes # (Auto) 0.3 0.0-1.0 10^3/uL Eosinophils # (Auto) 0.0 0.0-0.3 10^3/uL Basophils # (Auto) 0.0 0.0-0.1 10^3/uL Immature Granulocyte # (Auto) 0.0 0.0-0.1 10^3/uL Percent Immature Platelet Fraction 3.2 0.0-7.6 % Prothrombin Time 17.7 H 12.2-14.7 SEC INR Comment 1.4 0.8-1.4 Activated Partial Thromboplast Time 42 H 24-35 SEC Sodium Level 141 135-145 MMOL/L Potassium Level 3.3 L 3.6-5.0 MMOL/L Chloride Level 109 H 98-107 MMOL/L Carbon Dioxide Level 18 L 21-32 MMOL/L Anion Gap 14 5-14 MMOL/L Blood Urea Nitrogen 19 H 7-18 MG/DL Creatinine 1.03 0.60-1.30 MG/DL Estimat Glomerular Filtration Rate 65 BUN/Creatinine Ratio 18 Glucose Level 96 70-105 MG/DL Calcium Level 8.4 L 8.5-10.1 MG/DL Corrected Calcium 8.6 8.5-10.1 MG/DL Total Bilirubin 0.8 0.1-1.0 MG/DL Aspartate Amino Transf (AST/SGOT) 144 H 5-34 U/L Alanine Aminotransferase (ALT/SGPT) 75 H 0-55 U/L Alkaline Phosphatase 187 H 40-136 U/L Total Creatine Kinase 395 H 29-168 U/L Creatine Kinase MB 3.7 <6.6 NG/ML Total Protein 7.9 6.4-8.2 GM/DL Albumin 3.8 3.2-4.5 GM/DL Amylase Level 132 H 25-125 U/L Lipase 69 8-78 U/L Serum Alcohol 287 H <10 MG/DL Urine Color YELLOW Urine Clarity SL CLOUDY Urine pH 6.0 5-9 Urine Specific [place] 1.025 H 1.016-1.022 Urine Protein NEGATIVE NEGATIVE Urine Glucose (UA) NEGATIVE NEGATIVE Urine Ketones NEGATIVE NEGATIVE Urine Nitrite NEGATIVE NEGATIVE Urine Bilirubin NEGATIVE NEGATIVE Urine Urobilinogen 1.0 < = 1.0 MG/DL Urine Leukocyte Esterase NEGATIVE NEGATIVE Urine RBC (Auto) NEGATIVE NEGATIVE Urine RBC NONE /HPF Urine WBC NONE /HPF Urine Crystals NONE /LPF Urine Bacteria TRACE /HPF Urine Casts NONE /LPF Urine Mucus NEGATIVE /LPF Urine Culture Indicated NO Urine Opiates Screen POSITIVE H NEGATIVE Urine Oxycodone Screen NEGATIVE NEGATIVE Urine Methadone Screen NEGATIVE NEGATIVE Urine Propoxyphene Screen NEGATIVE NEGATIVE Urine Barbiturates Screen NEGATIVE NEGATIVE Ur Tricyclic Antidepressants Screen NEGATIVE NEGATIVE Urine Phencyclidine Screen NEGATIVE NEGATIVE Urine Amphetamines Screen NEGATIVE NEGATIVE Urine Methamphetamines Screen NEGATIVE NEGATIVE Urine Benzodiazepines Screen NEGATIVE NEGATIVE Urine Cocaine Screen POSITIVE H NEGATIVE Urine Cannabinoids Screen POSITIVE H NEGATIVE My Orders Orders - CELY MEDINA DO Ed Iv/Invasive Line Start (08/03/22 20:49) Monitor-Rhythm Ecg Trace Only (08/03/22 20:49) Ct Head/Cervical Spine Wo (08/03/22 20:49) Ct Thoracic/Lumbar Spine Wo (08/03/22 20:49) Chest 1 View, Ap/Pa Only (08/03/22 20:49) Alcohol (08/03/22 20:49) Amylase (08/03/22 20:49) Cbc With Automated Diff (08/03/22 20:49) Comprehensive Metabolic Panel (08/03/22 20:49) Creatine Kinase (08/03/22 20:49) Creatine Kinase Mb (08/03/22 20:49) Drug Screen Stat (Urine) (08/03/22 20:49) Lipase (08/03/22 20:49) Protime With Inr (08/03/22 20:49) Partial Thromboplastin Time (08/03/22 20:49) Ua Culture If Indicated (08/03/22 20:49) Ed Iv/Invasive Line Start (08/03/22 20:49) Lactated Ringers (Lr 1000 Ml Iv Solution (08/03/22 21:00) Ct Chest/Abdomen/Pelvis Wo (08/03/22 20:49) Pelvis With Left Hip 2-3 Views (08/03/22 20:49) Catheter(Urinary) Insert & Ass 03,15 (08/03/22 21:21) Lidocaine 2% (Urojet) (Xylocaine Urojet) (08/03/22 21:30) Hcg,Qualitative Serum (08/03/22 21:38) Ed Iv/Invasive Line Start (08/03/22 22:09) Ns Iv 1000 Ml (Sodium Chloride 0.9%) (08/03/22 22:15) Medications Given in ED Current Medications Medications Dose Ordered Sig/Latoya Route Start Time Stop Time Status Last Admin Dose Admin Lactated Ringer's 1,000 ml @ 0 mls/hr Q0M ONCE IV 08/03/22 21:00 08/03/22 21:01 DC 08/03/22 21:02 999 MLS/HR Vital Signs/I&O 08/03/22 20:45 Temp 36.4 Pulse 124 Resp 20 B/P (MAP) 162/112 (129) Pulse Ox 97 O2 Delivery Room Air Progress Progress Note : Progress Note WAILING STOPPED SHORTLY AFTER ARRIVAL. NO DETERIORATION IN PT'S CONDITION DURING ER STAY 2200--PT WANTING TO LEAVE. ADVISED THAT NOT ALL TEST RESULTS ARE BACK. PT WANTS TO SIGN OUT AMA. RISKS, INCLUDING WORSENING OF CONDITION AND , WELL BENEFITS, DISCUSSED WITH PT. PT THEN AGREED TO STAY FOR TEST RESULTS. PT IS SITTING UP, CONSTANT MOVEMENTS OF ENTIRE BODY. SPEECH IS CLEARER BUT STILL VERY RAPID. TALKING ON PHONE. PT STATES SHE DOES NOT HURT ANYWHERE NOW. SHE NOW ADMITS TO COCAINE, METH, MARIJUANA USE. STATES SHE SMOKES THEM. DENIES IV USE GAIT STEADY AT DISMISSAL Diagnostic Imaging Comments ALL PER RADIOLOGIST REPORTS AT 214 CXR--FINDINGS: The lung volumes are normal. Left basilar atelectasis is seen. No large pleural effusion or pneumothorax is seen. The cardiomediastinal silhouette is normal in size and contour. There is calcified aortic atherosclerotic plaque. No acute osseous abnormality is seen. IMPRESSION: Left basilar atelectasis. No focal consolidation or pleural effusion. PELVIS AND LEFT HIP--FINDINGS: There is no acute fracture or dislocation of the pelvis and left hip. Alignment is anatomic. The imaged joint spaces are preserved. Phleboliths are seen in the pelvis. IMPRESSION: No acute fracture or dislocation in the pelvis or left hip. CT HEAD/CERVICAL SPINE--FINDINGS: CT HEAD: No large acute territorial ischemia, mass or hemorrhage. No midline shift or mass effect. The ventricles, cortical sulci and basilar cisterns are patent and unremarkable. The calvarium is intact. The visualized paranasal sinuses are clear. CT CERVICAL SPINE: No acute fracture or dislocation is seen in the cervical spine. No focal osseous lesion. Vertebral body heights are well-maintained. The craniocervical junction is well-maintained. Mild degenerative changes are seen in the cervical spine with disc osteophyte complexes and uncovertebral arthropathy. Soft tissues of the neck are unremarkable. IMPRESSION: 1. No hemorrhage or focal intra-axial mass. No CT evidence of large acute territorial ischemia. 2. No acute fracture or dislocation in the cervical spine. CT THORACIC/LUMBAR SPINE-- FINDINGS: No acute fracture or dislocation in the thoracic and lumbar spine. No evidence of malalignment. No focal osseous lesion. No evidence of acute spinal canal stenosis. The paraspinal soft tissues are unremarkable. IMPRESSION: No acute fracture or dislocation in the thoracic and lumbar spine. CT CHEST/ABDOMEN/PELVIS-- CT CHEST: The heart size is within normal limits. No pericardial effusion is present. There is aneurysm of the ascending thoracic aorta measuring 4.3 cm. There is no mediastinal, hilar or axillary lymphadenopathy. Subsegmental atelectasis is seen in the left lung base. No focal consolidation. No suspicious pulmonary nodule. No pneumothoraces are present. No central endobronchial obstructing lesion is identified. There is abnormality in the chest. CT ABDOMEN AND PELVIS: The liver has a nodular contour. The gallbladder is surgically absent. The spleen, pancreas, adrenal glands and kidneys have a normal appearance. There is no pathologically enlarged mesenteric or retroperitoneal adenopathy. The bowel loops are nondilated. The appendix is visualized in the right lower quadrant and has a normal appearance. There is no free fluid or free air. No acute osseous abnormality in the abdomen and pelvis. There is calcified aortic and iliac atherosclerotic plaque. Ureters and bladder are grossly normal. There is no free air, loculated collection or adenopathy in the pelvis. IMPRESSION: 1. No evidence of acute injury in the chest, abdomen or pelvis. 2. Cirrhotic morphology of the liver. 3. Ascending thoracic aortic aneurysm measuring 4.3 cm. No periaortic inflammatory changes to suggest impending rupture. Recommend follow-up as indicated. Departure Impression Primary Impression: FALL WHILE ROLLER SKATING Additional Impressions: Minor head injury with loss of consciousness LEFT FLANK, BACK AND HIP CONTUSION Alcohol intoxication Illicit drug use Disposition: 01 HOME, SELF-CARE Condition: Improved Departure-Patient Inst. Decision time for Depature: 22:30 Referrals: NO,LOCAL PHYSICIAN (PCP) Primary Care Physician Patient Instructions: General Trauma (DC), Polysubstance Use Disorder (DC), Alcohol Use Disorder ED Add. Discharge Instructions: TYLENOL 1 GRAM PLUS IBUPROFEN 800 MG 4 TIMES A DAY FOR PAIN NO ALCOHOL!! NO DRUGS!! FOLLOW UP WITH IN 1 WEEK IF NO BETTER CELY MEDINA DO Aug 03, 2022 20:59
[2022-08-03] MEDS ORDERED: LACTATED RINGERS 1,000 ML IV ONE (21:00)
[2022-08-03 21:08] LABS: HEMOGLOBIN 9.6 g/dL (11.5-16.0)
[2022-08-03 21:09] LABS: BASOPHILS % (AUTO) 1 % (0-10); EOSINOPHILS % (AUTO) 0 % (0-10); HEMATOCRIT 29 % (35-52); LYMPHOCYTES # (AUTO) 1.8 10^3/uL (1.0-4.0); LYMPHOCYTES % (AUTO) 42 % (12-44); MEAN CORPUSCULAR HEMOGLOBIN 27 pg (25-34); MEAN CORPUSCULAR HGB CONC 33 g/dL (32-36); MEAN CORPUSCULAR VOLUME 83 fL (80-99); MEAN PLATELET VOLUME 9.8 fL (9.0-12.2); MONOCYTES # (AUTO) 0.3 10^3/uL (0.0-1.0); MONOCYTES % (AUTO) 8 % (0-12); NEUTROPHILS # (AUTO) 2.1 10^3/uL (1.8-7.8); NEUTROPHILS % (AUTO) 48 % (42-75); PLATELET COUNT 64 10^3/uL (130-400); WHITE BLOOD COUNT 4.3 10^3/uL (4.3-11.0)
[2022-08-03 21:21] LABS: INR 1.4 (0.8-1.4); PROTHROMBIN TIME PATIENT 17.7 SEC (12.2-14.7)
[2022-08-03 21:30] LABS: ALBUMIN 3.8 GM/DL (3.2-4.5); BILIRUBIN,TOTAL 0.8 MG/DL (0.1-1.0); CALCIUM 8.4 MG/DL (8.5-10.1); CREATININE SERUM 1.03 MG/DL (0.60-1.30); POTASSIUM 3.3 MMOL/L (3.6-5.0); TOTAL PROTEIN 7.9 GM/DL (6.4-8.2)
[2022-08-03] MEDS ORDERED: LIDOCAINE UROJET 2% GEL 10 ML PKG TOP ONE (21:30)
--- NOTE | 2022-08-03 21:35 | Diagnostic Imaging Report ---
EXAMINATION: Chest 1 view. HISTORY: Fall. Chest pain. COMPARISON: 01/19/2022. FINDINGS: The lung volumes are normal. Left basilar atelectasis is seen. No large pleural effusion or pneumothorax is seen. The cardiomediastinal silhouette is normal in size and contour. There is calcified aortic atherosclerotic plaque. No acute osseous abnormality is seen. IMPRESSION: Left basilar atelectasis. No focal consolidation or pleural effusion. Dictated by: Dictated on workstation # [id number]
[2022-08-03 21:36] LABS: CREATINE KINASE MB 3.7 NG/ML (<6.6)
[2022-08-03 21:38] LABS: BILIRUBIN,URINE NEGATIVE (NEGATIVE); CLARITY,URINE SL CLOUDY; COLOR,URINE YELLOW; GLUCOSE, URINE (UA) NEGATIVE (NEGATIVE); KETONES,URINE NEGATIVE (NEGATIVE); LEUKOCYTE ESTERASE ,URINE NEGATIVE (NEGATIVE); NITRITE,URINE NEGATIVE (NEGATIVE); PROTEIN,URINE NEGATIVE (NEGATIVE)
--- NOTE | 2022-08-03 21:38 | Diagnostic Imaging Report ---
CLINICAL HISTORY: Fall. Pelvic pain. Left hip pain. COMPARISON: None. TECHNIQUE: 3 views of the pelvis and left hip. FINDINGS: There is no acute fracture or dislocation of the pelvis and left hip. Alignment is anatomic. The imaged joint spaces are preserved. Phleboliths are seen in the pelvis. IMPRESSION: No acute fracture or dislocation in the pelvis or left hip. Dictated by: Dictated on workstation # [id number]
--- NOTE | 2022-08-03 21:40 | Diagnostic Imaging Report ---
PROCEDURE: CT head and CT cervical spine without contrast. TECHNIQUE: Multiple contiguous axial images were obtained through the brain and cervical spine without the use of intravenous contrast. Sagittal and coronal reformations through the cervical spine were then performed. Auto Exposure Controls were utilized during the CT exam to meet ALARA standards for radiation dose reduction. INDICATION: Trauma. Fall. Head and neck pain. COMPARISON: 05/02/2022. FINDINGS: CT HEAD: No large acute territorial ischemia, mass or hemorrhage. No midline shift or mass effect. The ventricles, cortical sulci and basilar cisterns are patent and unremarkable. The calvarium is intact. The visualized paranasal sinuses are clear. CT CERVICAL SPINE: No acute fracture or dislocation is seen in the cervical spine. No focal osseous lesion. Vertebral body heights are well-maintained. The craniocervical junction is well-maintained. Mild degenerative changes are seen in the cervical spine with disc osteophyte complexes and uncovertebral arthropathy. Soft tissues of the neck are unremarkable. IMPRESSION: 1. No hemorrhage or focal intra-axial mass. No CT evidence of large acute territorial ischemia. 2. No acute fracture or dislocation in the cervical spine. Dictated by: Dictated on workstation # [id number]
--- NOTE | 2022-08-03 21:41 | Diagnostic Imaging Report ---
PROCEDURE: CT chest, abdomen, and pelvis without contrast. TECHNIQUE: Multiple contiguous axial images were obtained through the chest, abdomen, and pelvis without the use of intravenous contrast. Auto Exposure Controls were utilized during the CT exam to meet ALARA standards for radiation dose reduction. INDICATION: Fall. Chest and abdominal pain. Bruising. COMPARISON: 05/02/2022. CT CHEST: The heart size is within normal limits. No pericardial effusion is present. There is aneurysm of the ascending thoracic aorta measuring 4.3 cm. There is no mediastinal, hilar or axillary lymphadenopathy. Subsegmental atelectasis is seen in the left lung base. No focal consolidation. No suspicious pulmonary nodule. No pneumothoraces are present. No central endobronchial obstructing lesion is identified. There is abnormality in the chest. CT ABDOMEN AND PELVIS: The liver has a nodular contour. The gallbladder is surgically absent. The spleen, pancreas, adrenal glands and kidneys have a normal appearance. There is no pathologically enlarged mesenteric or retroperitoneal adenopathy. The bowel loops are nondilated. The appendix is visualized in the right lower quadrant and has a normal appearance. There is no free fluid or free air. No acute osseous abnormality in the abdomen and pelvis. There is calcified aortic and iliac atherosclerotic plaque. Ureters and bladder are grossly normal. There is no free air, loculated collection or adenopathy in the pelvis. IMPRESSION: 1. No evidence of acute injury in the chest, abdomen or pelvis. 2. Cirrhotic morphology of the liver. 3. Ascending thoracic aortic aneurysm measuring 4.3 cm. No periaortic inflammatory changes to suggest impending rupture. Recommend follow-up as indicated. Dictated by: Dictated on workstation # [id number]
--- NOTE | 2022-08-03 21:41 | Diagnostic Imaging Report ---
PROCEDURE: CT thoracic and lumbar spine without contrast. TECHNIQUE: Multiple contiguous axial images were obtained through the thoracic and lumbar spine without the use of intravenous contrast. Sagittal and coronal reformations were then performed. All CT scans use one or more of the following dose optimizing techniques: automated exposure control, MA and/or KvP adjustment based on patient size and exam type or iterative reconstruction. INDICATION: Trauma. Fall. Mid and lower back pain. COMPARISON: None. FINDINGS: No acute fracture or dislocation in the thoracic and lumbar spine. No evidence of malalignment. No focal osseous lesion. No evidence of acute spinal canal stenosis. The paraspinal soft tissues are unremarkable. IMPRESSION: No acute fracture or dislocation in the thoracic and lumbar spine. Dictated by: Dictated on workstation # [id number]
[2022-08-03 21:50] LABS: BACTERIA,URINE TRACE /HPF
[2022-08-03 22:15] LABS: BARBITURATE SCREEN URINE NEGATIVE (NEGATIVE); BENZODIAZEPINES SCREEN URINE NEGATIVE (NEGATIVE); CANNABINOID SCREEN, URINE POSITIVE (NEGATIVE); COCAINE SCREEN URINE POSITIVE (NEGATIVE); METHADONE STAT NEGATIVE (NEGATIVE); OPIATE SCREEN URINE POSITIVE (NEGATIVE); OXYCODONE STAT NEGATIVE (NEGATIVE); TRICYCLIC ANTIDEPRESSANTS SCRE NEGATIVE (NEGATIVE)
[2022-08-03] MEDS ORDERED: NS IV 1000 ML 1,000 ML IV SCH (22:15)
[2022-08-03 22:16] LABS: AMPHETAMINE SCREEN, URINE NEGATIVE (NEGATIVE); PROPOXYPHENE STAT NEGATIVE (NEGATIVE)
[2022-08-03 22:37] VITALS: BP 129/118
== END 2022-08-03 22:43 | disposition home or self-care (01) ==
LOC: EDUNIT# 20:41 → ER 20:42
DX: S06.9X9A Unspecified intracranial injury with loss of consciousness of unspecified duration, initial encounter (principal); S70.02XA Contusion of left hip, initial encounter; S30.0XXA Contusion of lower back and pelvis, initial encounter; S30.1XXA Contusion of abdominal wall, initial encounter; F19.90 Other psychoactive substance use, unspecified, uncomplicated; F10.129 Alcohol abuse with intoxication, unspecified; F17.210 Nicotine dependence, cigarettes, uncomplicated; Z32.02 Encounter for pregnancy test, result negative; Z28.310 Unvaccinated for COVID-19; V00.131A Fall from skateboard, initial encounter; Y93.51 Activity, roller skating (inline) and skateboarding; Y92.331 Roller skating rink as the place of occurrence of the external cause; Y90.8 Blood alcohol level of 240 mg/100 ml or more
CPT/HCPCS: 51702; 70450; 71045; 71250; 72125; 72128; 72131; 73502; 74176; 80053; 80306; 81000; 82150; 82550; 82553; 83690; 84703; 85025; 85610; 85730; 93041; 99284; G0480; 36415; 80320

== ENCOUNTER 2022-09-17 12:35 | Emergency (ER) | payer SELFPAY ==
[~2022-09-17] VITALS: Ht 167 cm; Wt 54.0 kg
[2022-09-17] MEDS ORDERED: ONDANSETRON 4 MG (ZOFRAN) ORAL DISSOLVE TAB PO ONE (13:15)
[2022-09-17] MEDS ORDERED: IBUPROFEN 600 MG (MOTRIN) TAB PO ONE (13:15)
[2022-09-17] MEDS ORDERED: HYDROcodone/APAP 5 MG/325 MG (LORTAB) TAB PO ONE (13:15)
--- NOTE | 2022-09-17 14:19 | Diagnostic Imaging Report ---
INDICATION: Productive cough and fever. AP and lateral views of chest are obtained. Comparison is made to study of 08/03/2022. Heart size and pulmonary vascularity remain within normal limits. There is mild right convexity curvature of the thoracic spine. Linear atelectasis or scarring is seen in left lung base. There is no significant pleural fluid. IMPRESSION: No acute abnormality or significant change. Dictated by: Dictated on workstation # [id number]
[2022-09-17] MEDS ORDERED: ONDA4TAB11 SL (14:36)
[2022-09-17] MEDS ORDERED: HYDR25TA4 PO (14:36)
[2022-09-17] MEDS ORDERED: CIPR7.5D6 OT (14:36)
[2022-09-17] MEDS ORDERED: IBUP-1773 PO (14:36)
--- NOTE | 2022-09-17 14:36 | ED General ---
General Chief Complaint: Cardiac/General Problems Stated Complaint: HIGH BLOOD PRESSURE | CHEST CONGESTION Nursing Triage Note: ARRIVED FROM [facility] WITH COMPLAINTS OF DIZZINESS, HIGH BLOOD PRESSURE, HEADACHE, AND LEFT EAR PAIN STARTING YESTERDAY. Source of Information: Patient Exam Limitations: No Limitations (RONALDO YEN APRN) History of Present Illness Date Seen by Provider: Sep 17, 2022 Time Seen by Provider: 13:00 Initial Comments Patient provided history. Patient is a 52-year-old female who presents to the emergency department for evaluation of dizziness, high blood pressure, headache, and left ear pain. Patient states approximately 1 month ago she was taken off her hyd rochlorothiazide and since that time has had frequent intermittent headaches. She is unsure of the reason of why she was taken off of the blood pressure medicine. She states he has had the left ear pain for the last week. States she has had some white discharge from her left ear intermittently. She was seen at an urgent care and referred here for further evaluation. She has not taken any medication today for the symptoms. (RONALDO YEN APRN) Allergies and Home Medications Allergies Coded Allergies: hydromorphone (Verified Allergy, Mild, Itching, 05/02/22) Patient Home Medication List Home Medication List Reviewed: Yes (RONALDO YEN APRN) Azithromycin (Azithromycin) 250 Mg Tablet, 250 MG PO UD Prescribed by: JNAE ANDRADE on 12/19/21 163 Cefdinir (Cefdinir) 300 Mg Capsule, 300 MG PO BID Prescribed by: JANE ANDRADE on 12/19/21 1636 Ciprofloxacin HCl/Dexameth (Ciproflox-Dexameth Otic Susp) 0.3 %-0.1 % Drops.susp, 4 DROPS OT BID Prescribed by: Ronaldo Yen on 09/17/22 143 Hydrochlorothiazide (Hydrochlorothiazide) 25 Mg Tablet, 25 MG PO DAILY Prescribed by: Ronaldo Yen on 09/17/22 1436 Ibuprofen (Ibuprofen) 600 Mg Tablet, 600 MG PO Q6H PRN for PAIN-MILD Prescribed by: Ronaldo Yen on 09/17/22 143 Ipratropium/Albuterol Sulfate (Iprat-Albut 0.5-3(2.5) mg/3 ml) 3 Ml Ampul.neb, 3 ML IH Q4H PRN for SHORTNESS OF BREATH Prescribed by: JANE ANDRADE on 12/19/21 163 Nebulizer and Compressor (Compressor Nebulizer System) 1 Each Each, EACH MC Q4H PRN for WHEEZING, (DME) Prescribed by: JANE ANDRADE on 12/19/21 163 Ondansetron (Ondansetron Odt) 4 Mg Tab.rapdis, 4 MG SL Q4H PRN for NAUSEA/VOMITING Prescribed by: Ronaldo Yen on 09/17/22 1436 Prednisone (Prednisone) 20 Mg Tab, 20 MG PO DAILY Prescribed by: JANE ANDRADE on 12/19/21 163 Review of Systems Review of Systems Constitutional: no symptoms reported EENTM: see HPI, ear pain Respiratory: no symptoms reported Cardiovascular: no symptoms reported Gastrointestinal: no symptoms reported Genitourinary: no symptoms reported Musculoskeletal: no symptoms reported Skin: no symptoms reported Psychiatric/Neurological: No Symptoms Reported Hematologic/Lymphatic: No Symptoms Reported Immunological/Allergic: no symptoms reported (RONALDO YEN APRN) Past Levhqcs-Fnuecd-Flvwmv Hx Patient Social History Tobacco Use?: Yes Smoking Status: Current Everyday Smoker Substance use?: Yes Substance type: Marijuana Alcohol Use?: Yes Alcohol Frequency: Once in a while (RONALDO YEN APRN) Immunizations Up To Date First/Initial COVID19 Vaccinat: NO Second COVID19 Vaccination [place]: NO Third COVID19 Vaccination Date: NO (RONALDO YEN APRN) Past Medical History Surgery/Hospitalization HX: GALLBLADDER, ULCERS, NIDDM, SEIZURES Surgeries: Yes Gallbladder Respiratory: No Cardiac: Yes Hypertension Neurological: Yes Neuropathy, Seizure Disorder Reproductive Disorders: No Genitourinary: No Gastrointestinal: No Musculoskeletal: No Endocrine: Yes Diabetes, Non-Insulin dep HEENT: No Cancer: No Psychosocial: No Integumentary: No Blood Disorders: No (RONALDO YEN APRN) Physical Exam Vital Signs Vital Signs - First Documented 09/17/22 12:35 Temp 36.7 Pulse 93 Resp 16 B/P (MAP) 176/110 (132) Pulse Ox 98 O2 Delivery Room Air (CAROL,CELY K DO) Vital Signs Capillary Refill : Less Than 3 Seconds (RONALDO YEN APRN) Height, Weight, BMI Height: '" Weight: lbs. oz. 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 Norm as Tested Skin: Normal Color, Warm/Dry Comments pain with palpation of L tragus; white debris noted in the L ear canal (RONALDO YEN APRN) Progress/Results/Core Measures Suspected Sepsis SIRS Temperature: Pulse: 93 Respiratory Rate: 16 Blood Pressure 176 /110 Mean: 132 (RONALDO YEN APRN) Results/Orders Vital Signs/I&O 09/17/22 09/17/22 12:35 14:47 Temp 36.7 Pulse 93 90 Resp 16 B/P (MAP) 176/110 (132) 163/105 Pulse Ox 98 98 O2 Delivery Room Air Room Air (CAROL,CELY K DO) Vital Signs/I&O Capillary Refill : Less Than 3 Seconds (RONALDO YEN APRN) Blood Pressure Mean: 132 Progress Note : Progress Note Patient is nontoxic and well-hydrated on exam. Vital signs notable for hype rtension. No adventitious lung sounds or increased work of breathing noted. Otoscopy notable for debris in the left ear canal as well as increased pain with tragal palpation. No postauricular swelling suspicious for mastoiditis noted. Patient was given a dose of hydrochlorothiazide, ibuprofen, Lortab, and Zofran. Exam is consistent with otitis externa. Headaches likely related to untreated hypertension. Will discharge home with recommendations for supportive care and close follow-up with PCP. Return precautions for urgent symptomology discussed. Patient verbalized understanding. (RONALDO YEN APRN) Departure Impression Primary Impression: Hypertensive urgency Additional Impressions: Viral syndrome Left otitis externa Qualified Codes: H60.502 - Unspecified acute noninfective otitis externa, left ear Disposition: HOME, SELF-CARE Condition: Stable Departure-Patient Inst. Decision time for Depature: 14:30 (RONALDO YEN APRN) Referrals: NO,LOCAL PHYSICIAN (PCP/Family) Primary Care Physician Patient Instructions: Outer Ear Infection ED, Viral Syndrome (DC), High Blood Pressure (DC) Scripts Ibuprofen (Ibuprofen) 600 Mg Tablet 600 MG PO Q6H PRN for PAIN-MILD for 5 Days, #20 TAB 0 Refills Prov: RONALDO YEN APRN 09/17/22 Ondansetron (Ondansetron Odt) 4 Mg Tab.rapdis 4 MG SL Q4H PRN for NAUSEA/VOMITING for 5 Days, #25 TAB 0 Refills Prov: RONALDO YEN APR09/17/22 Ciprofloxacin HCl/Dexameth (Ciproflox-Dexameth Otic Susp) 0.3 %-0.1 % Drops.susp 4 DROPS OT BID for 7 Days, #7.5 ML 0 Refills Prov: RONALDO YEN APR09/17/22 Hydrochlorothiazide (Hydrochlorothiazide) 25 Mg Tablet 25 MG PO DAILY for 14 Days, #14 TAB 0 Refills Prov: RONALDO YEN APRN 09/17/22 ATTENDING PHYSICIAN NOTE: I WAS PHYSICALLY PRESENT ER PHYSICIAN, BUT I WAS NOT INVOLVED IN ANY DECISION MAKING OR ANY CARE OF THIS PATIENT, AND I AM NOT COLLABORATING PHYSICIAN. (CELY MEDINA DO) RONALDO YEN APRN Sep 17, 2022 14:36 CELY MEDINA DO Sep 20, 2022 00:21
[2022-09-17 14:47] VITALS: BP 163/105
== END 2022-09-17 14:50 | disposition home or self-care (01) ==
LOC: EDUNIT# 12:35 → ER 12:38
DX: I16.0 Hypertensive urgency (principal); B34.9 Viral infection, unspecified; H60.92 Unspecified otitis externa, left ear; I10 Essential (primary) hypertension; F17.200 Nicotine dependence, unspecified, uncomplicated; Z88.6 Allergy status to analgesic agent; Z28.310 Unvaccinated for COVID-19
CPT/HCPCS: 71046

== ENCOUNTER 2022-11-01 20:06 | Emergency (ER) | payer SELFPAY ==
[~2022-11-01] VITALS: Ht 167.7 cm; Wt 54.0 kg
[~2022-11-01 20:06] MED LIST changes: +CIPR7.5D6 OT; +HYDR25TA4 PO; +IBUP-1773 PO; +ONDA4TAB11 SL
--- NOTE | 2022-11-01 20:11 | ED Chest Pain ---
General Chief Complaint: Chest Pain Stated Complaint: CHEST PAIN Source: patient Exam Limitations: no limitations History of Present Illness Date Seen by Provider: Nov 01, 2022 Time Seen by Provider: 20:11 Initial Comments 52-year-old female presents to the emergency room with left-sided chest pain. She states pain became severe approximately 2-1/2 hours prior to arrival. She has had some mild shortness of breath and productive cough of clear and yellow sputum over the course of the last week. She denies fevers or chills. She endorses abdominal discomfort, dysuria. She is unsure of sick contacts. Not COVID vaccinated. Has taken Tylenol and ibuprofen without relief of symptoms. Is very agitated and distressed cursing about her symptoms that her chest feels like it is "going to blow up". She states she has had previous symptoms like this when she had a "TIA" in the past. She is a smoker. No history of coronary artery disease. She does have hypertension and states she ran out of her hydrochlorothiazide 3 days ago. She admits to marijuana use. Movement and deep breath and touching the area makes the pain worse. Nothing is making it any better. 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) Associated Symptoms: back pain, nausea/vomiting Allergies and Home Medications Allergies Coded Allergies: hydromorphone (Verified Allergy, Mild, Itching, 05/02/22) Patient Home Medication List Home Medication List Reviewed: Yes Azithromycin (Azithromycin) 250 Mg Tablet, 250 MG PO UD Prescribed by: JANE ANDRADE on 12/19/21 163 Cefdinir (Cefdinir) 300 Mg Capsule, 300 MG PO BID Prescribed by: JANE ANDRADE on 12/19/21 163 Ciprofloxacin HCl/Dexameth (Ciproflox-Dexameth Otic Susp) 0.3 %-0.1 % Drops.susp, 4 DROPS OT BID Prescribed by: Ronaldo Yen on 09/17/22 143 Hydrochlorothiazide (Hydrochlorothiazide) 25 Mg Tablet, 25 MG PO DAILY Prescribed by: Ronaldo Yen on 09/17/22 143 Ibuprofen (Ibuprofen) 600 Mg Tablet, 600 MG PO Q6H PRN for PAIN-MILD Prescribed by: Ronaldo Yen on 09/17/221435 Ipratropium/Albuterol Sulfate (Iprat-Albut 0.5-3(2.5) mg/3 ml) 3 Ml Ampul.neb, 3 ML IH Q4H PRN for SHORTNESS OF BREATH Prescribed by: JANE ANDRADE on 12/19/211635 Nebulizer and Compressor (Compressor Nebulizer System) 1 Each Each, EACH MC Q4H PRN for WHEEZING, (DME) Prescribed by: JANE ANDRADE on 12/19/211635 Ondansetron (Ondansetron Odt) 4 Mg Tab.rapdis, 4 MG SL Q4H PRN for N AUSEA/VOMITING Prescribed by: Ronaldo Yen on 09/17/221435 Prednisone (Prednisone) 20 Mg Tab, 20 MG PO DAILY Prescribed by: JANE ANDRADE on 12/19/211635 Review of Systems Review of Systems Constitutional: see HPI EENTM: No Symptoms Reported Respiratory: Cough, Shortness of Air Cardiovascular: Chest Pain Gastrointestinal: Nausea Genitourinary: No Symptoms Reported Musculoskeletal: back pain Skin: no symptoms reported Psychiatric/Neurological: No Symptoms Reported All Other Systems Reviewed Negative Unless Noted: Yes Past Fhvgvdr-Rmfzgi-Fbbuvv Hx Immunizations Up To Date First/Initial COVID19 Vaccinat: NO Second COVID19 Vaccination [place]: NO Third COVID19 Vaccination Date: NO Past Medical History Surgery/Hospitalization HX: GALLBLADDER, ULCERS, NIDDM, SEIZURES Surgeries: Yes Gallbladder Respiratory: No Cardiac: Yes Hypertension Neurological: Yes Neuropathy, Seizure Disorder Reproductive Disorders: No Genitourinary: No Gastrointestinal: No Musculoskeletal: No Endocrine: Yes Diabetes, Non-Insulin dep HEENT: No Cancer: No Psychosocial: No Integumentary: No Blood Disorders: No Physical Exam Vital Signs Vital Signs - First Documented Capillary Refill : Height, Weight, BMI Height: '" Weight: lbs. oz. 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 as Tested, Other (Significantly anxious) Skin: Normal Color, Warm/Dry Progress/Results/Core Measures Results/Orders Lab Results Laboratory Tests Test 11/01/22 20:20 11/01/22 20:34 Range/Units White Blood Count 4.4 4.3-11.0 10^3/uL Red Blood Count 3.86 3.80-5.11 10^6/uL Hemoglobin 11.0 L 11.5-16.0 g/dL Hematocrit 33 L 35-52 % Mean Corpuscular Volume 86 80-99 fL Mean Corpuscular Hemoglobin 29 25-34 pg Mean Corpuscular Hemoglobin Concent 33 32-36 g/dL Red Cell Distribution Width 15.8 H 10.0-14.5 % Platelet Count 115 L 130-400 10^3/uL Mean Platelet Volume 8.9 L 9.0-12.2 fL Immature Granulocyte % (Auto) 1 % Neutrophils (%) (Auto) 44 42-75 % Lymphocytes (%) (Auto) 42 12-44 % Monocytes (%) (Auto) 12 0-12 % Eosinophils (%) (Auto) 1 0-10 % Basophils (%) (Auto) 1 0-10 % Neutrophils # (Auto) 1.9 1.8-7.8 10^3/uL Lymphocytes # (Auto) 1.9 1.0-4.0 10^3/uL Monocytes # (Auto) 0.5 0.0-1.0 10^3/uL Eosinophils # (Auto) 0.0 0.0-0.3 10^3/uL Basophils # (Auto) 0.0 0.0-0.1 10^3/uL Immature Granulocyte # (Auto) 0.0 0.0-0.1 10^3/uL Percent Immature Platelet Fraction 1.2 0.0-7.6 % Sodium Level 143 135-145 MMOL/L Potassium Level 3.8 3.6-5.0 MMOL/L Chloride Level 111 H 98-107 MMOL/L Carbon Dioxide Level 20 L 21-32 MMOL/L Anion Gap 12 5-14 MMOL/L Blood Urea Nitrogen 30 H 7-18 MG/DL Creatinine 1.00 0.60-1.30 MG/DL Estimat Glomerular Filtration Rate 68 BUN/Creatinine Ratio 30 Glucose Level 88 70-105 MG/DL Calcium Level 8.5 8.5-10.1 MG/DL Corrected Calcium 8.7 8.5-10.1 MG/DL Total Bilirubin 0.5 0.1-1.0 MG/DL Aspartate Amino Transf (AST/SGOT) 140 H 5-34 U/L Alanine Aminotransferase (ALT/SGPT) 107 H 0-55 U/L Alkaline Phosphatase 249 H 40-136 U/L Troponin I < 0.028 <0.028 NG/ML Total Protein 7.4 6.4-8.2 GM/DL Albumin 3.7 3.2-4.5 GM/DL SARS-CoV-2 RNA (RT-PCR) Not Detected Not Detecte My Orders Orders - TERESSA LAM MD Ed Iv/Invasive Line Start (11/01/22 20:17) Cbc With Automated Diff (11/01/22 20:17) Comprehensive Metabolic Panel (11/01/22 20:17) Ua Culture If Indicated (11/01/22 20:17) Chest 1 View, Ap/Pa Only (11/01/22 20:17) Drug Screen Stat (Urine) (11/01/22 20:17) Troponin I [place] (11/01/22 20:17) Aspirin Chewable Tablet (Baby Aspirin Ch (11/02/22 09:00) Ketorolac Injection (Toradol Injection) (11/01/22 20:30) Ondansetron Injection (Zofran Injectio (11/01/22 20:30) Covid 19 Inhouse Test (11/01/22 20:30) Isolation Central Supply Req (11/01/22 20:30) Metoclopramide Injection (Reglan Injecti (11/01/22 20:45) Diphenhydramine Injection (Benadryl Inje (11/01/22 20:45) Medications Given in ED Current Medications Medications Dose Ordered Sig/Latoya Route Start Time Stop Time Status Last Admin Dose Admin Diphenhydramine HCl 25 mg ONCE ONCE IVP 11/01/22 20:45 11/01/22 20:46 DC 11/01/22 20:37 25 MG Ketorolac Tromethamine 15 mg ONCE ONCE IVP 11/01/22 20:30 11/01/22 20:31 DC 11/01/22 20:25 15 MG Metoclopramide HCl 10 mg ONCE ONCE IVP 11/01/22 20:45 11/01/22 20:46 DC 11/01/22 20:37 10 MG Ondansetron HCl 4 mg ONCE ONCE IVP 11/01/22 20:30 11/01/22 20:31 DC 11/01/22 20:25 4 MG Vital Signs/I&O 11/01/22 11/01/22 20:08 20:08 Temp 36.0 Pulse 72 Resp 18 B/P (MAP) 145/82 (103) Pulse Ox 98 O2 Delivery Room Air Room Air Progress Progress Note : Time: 21:39 Progress Note Patient seen and evaluated, 52-year-old with left-sided chest pain. Evaluation today includes physical exam, CBC, chemistry, troponin, EKG, chest x-ray. Physical exam pertinent for a very thin 52-year-old female in moderate to significant distress due to persistent cough, sputum and left-sided chest pain. Lungs are clear, oxygen saturations 100% on room air. Significant tenderness to even light palpation of the skin of the left chest wall. Abdomen is benign. Moves all extremities equally. Blood pressure is normal, pulses normal. Labs show normal CBC, chemistry and negative/undetectable troponin. EKG normal sinus rhythm with occasional PVC. Chest x-ray shows no infiltrate or effusion. Anna ent is treated with Toradol, Zofran, Reglan and Benadryl. She achieved significant relief with these medications. She did complain of some dysuria urgency frequency but at the time of this reevaluation she is completely asymptomatic of her chest pain and states she cannot provide a urine sample. She is ready for discharge to home. I did recommend that she follow-up with her primary care provider regarding possible infection and advised that not diagnosing it at this time might cause her to get sicker in the long run. She chooses to be discharged. Return precautions provided. She verbalized understanding. All questions are sought and answered. Initial ECG Impression Date: Nov 01, 2022 Initial ECG Impression Time: 20:10 Initial ECG Rate: 93 Initial ECG Rhythm: Normal Sinus Initial ECG Intervals: Normal Comment PVC's poor r wave progression over the precordiu,; No overt ST elevation or depression Diagnostic Imaging Diagonstic Imaging: Xray Plain Films/CT/US/NM/MRI: chest Comments [facility]. [place], [place] NAME: GAIL [facility] REC#: [id number] PT STATUS: REG ER : 1970 PHYSICIAN: TERESSA LAM MD ADMIT DATE: 11/01/22/ER Draft Date of Exam:11/01/22 CHEST 1 VIEW, AP/PA ONLY CLINICAL INDICATION: Patient with chest pain and productive cough for about 2 weeks. EXAM: Portable chest x-ray upright view. COMPARISON: Chest x-ray dated 08/03/2022. FINDINGS: Lungs/pleura: Stable curvilinear scarring in the left lung base. Otherwise, lungs are clear. There is no pneumothorax. There is no pleural effusion. Mediastinum: Unremarkable. Pulmonary vasculature: Unremarkable. Heart: Unremarkable. Bones/extrathoracic soft tissue: Unremarkable. IMPRESSION: Stable chest x-ray exam with no interval radiographic evidence of acute cardiopulmonary process. Stable minimal left basilar scarring. Dictated on workstation # [id number] Dict: 11/01/222037 Trans: 11/01/222046 [facility] [id number] Interpreted by: KOFI JURADO MD Electronically signed by: Departure Impression Primary Impression: Chest wall pain Additional Impression: Dysuria Disposition: 01 HOME, SELF-CARE Condition: Improved Departure-Patient Inst. Decision time for Depature: 21:43 Referrals: [facility] [place] NO,LOCAL PHYSICIAN (PCP) Primary Care Physician Patient Instructions: Chest Pain That Is Not Caused by the Heart (DC) Add. Discharge Instructions: You should really try and stop smoking, this will help you avoid problems related to chest pain in the future. Take zlwc-fna-rhrkcli ibuprofen 3 tablets which is 600 mg every 6 hours with food as needed for pain. If you have worsening symptoms especially with fever, shortness of breath, nausea vomiting please return to the emergency room for reevaluation. Please follow-up with [facility]. Return to the emergency department for any new, concerning or emergent complaints. TERESSA LAM MD Nov 01, 2022 20:11
[2022-11-01 20:25] LABS: BASOPHILS % (AUTO) 1 % (0-10); EOSINOPHILS % (AUTO) 1 % (0-10); HEMATOCRIT 33 % (35-52); LYMPHOCYTES # (AUTO) 1.9 10^3/uL (1.0-4.0); LYMPHOCYTES % (AUTO) 42 % (12-44); MEAN CORPUSCULAR HEMOGLOBIN 29 pg (25-34); MEAN CORPUSCULAR HGB CONC 33 g/dL (32-36); MEAN CORPUSCULAR VOLUME 86 fL (80-99); MEAN PLATELET VOLUME 8.9 fL (9.0-12.2); MONOCYTES # (AUTO) 0.5 10^3/uL (0.0-1.0); MONOCYTES % (AUTO) 12 % (0-12); NEUTROPHILS # (AUTO) 1.9 10^3/uL (1.8-7.8); NEUTROPHILS % (AUTO) 44 % (42-75); PLATELET COUNT 115 10^3/uL (130-400); WHITE BLOOD COUNT 4.4 10^3/uL (4.3-11.0)
[2022-11-01] MEDS ORDERED: KETOROLAC 15 MG/ML VIAL IVP ONE (20:30)
[2022-11-01] MEDS ORDERED: ONDANSETRON 4 MG/2 ML (SDV) Z0FRAN IVP ONE (20:30)
[2022-11-01] MEDS ORDERED: diphenhydrAMINE 50 MG/ML INJ (BENADRYL) IVP ONE (20:45)
[2022-11-01] MEDS ORDERED: METOCLOPRAMIDE INJ 10 MG/2 ML (REGLAN) IVP ONE (20:45)
--- NOTE | 2022-11-01 20:47 | Diagnostic Imaging Report ---
CLINICAL INDICATION: Patient with chest pain and productive cough for about 2 weeks. EXAM: Portable chest x-ray upright view. COMPARISON: Chest x-ray dated 08/03/2022. FINDINGS: Lungs/pleura: Stable curvilinear scarring in the left lung base. Otherwise, lungs are clear. There is no pneumothorax. There is no pleural effusion. Mediastinum: Unremarkable. Pulmonary vasculature: Unremarkable. Heart: Unremarkable. Bones/extrathoracic soft tissue: Unremarkable. IMPRESSION: Stable chest x-ray exam with no interval radiographic evidence of acute cardiopulmonary process. Stable minimal left basilar scarring. Dictated by: Dictated on workstation # [id number]
[2022-11-01 20:49] LABS: ALANINE AMINOTRANSFERASE 107 U/L (0-55); ALBUMIN 3.7 GM/DL (3.2-4.5); ALKALINE PHOSPHATASE 249 U/L (40-136); BILIRUBIN,TOTAL 0.5 MG/DL (0.1-1.0); BUN/CREATININE RATIO 30; CALCIUM 8.5 MG/DL (8.5-10.1); CARBON DIOXIDE 20 MMOL/L (21-32); CHLORIDE 111 MMOL/L (98-107); GFR ESTIMATED 68; GLUCOSE 88 MG/DL (70-105); POTASSIUM 3.8 MMOL/L (3.6-5.0); SODIUM 143 MMOL/L (135-145); TOTAL PROTEIN 7.4 GM/DL (6.4-8.2)
[2022-11-01 21:58] VITALS: BP 117/68
[2022-11-02] MEDS ORDERED: ASPIRIN 81 MG CHEW (CHILDREN'S ASA) PO SCH (09:00)
== END 2022-11-01 21:58 | disposition home or self-care (01) ==
LOC: EDUNIT# 20:06 → ER 20:07
DX: R07.89 Other chest pain (principal); R30.0 Dysuria; I10 Essential (primary) hypertension; Z79.899 Other long term (current) drug therapy; Z20.822 Contact with and (suspected) exposure to COVID-19; Z28.310 Unvaccinated for COVID-19
CPT/HCPCS: 36415; 71045; 80053; 84484; 85025; 87636; 93005

== ENCOUNTER 2023-04-13 18:25 | Emergency (ER) | payer SELFPAY ==
[~2023-04-13] VITALS: Ht 167 cm; Wt 60.0 kg
--- NOTE | 2023-04-13 18:57 | ED Upper Extremity ---
General Chief Complaint: Upper Extremity Stated Complaint: COLLAR BONE PAIN Nursing Triage Note: Pt presents to ER with complaints of right clavicle injury, reports that she rolled out of bed approximately three weeks ago. Pt reports that she was seen and evaluated at that time at facility and dx with clavicle fracture. Pt reports that she was placed in a sling, not currently using sling upon arrival to this facility. +neuros intact distal to injury site. Pt denies any known reinjury and denies follow up Source: patient Exam Limitations: no limitations (ALEXSANDRA FORD APRN) History of Present Illness Date Seen by Provider: Apr 13, 2023 Time Seen by Provider: 18:35 Initial Comments 53-year-old female presents to the ER with complaint of right clavicle pain for the last 3 weeks. She states that she fell out of bed 3 weeks ago and injured the clavicle. She was seen at [facility] in [place] and was found to have a clavicle fracture. She states she was placed in a sling and given a prescription for oxycodone at that time. She has since run out of the oxycodone. She was supposed to follow-up with orthopedics, but has not done that yet. She recently returned to [place] because she lives here and plans on seeing orthopedics down here instead of in [place]. She is not currently wearing the sling which was provided by [facility]. She last took Tylenol at noon today. Shoulder appears slightly deformed, it looks like AC joint separation, patient states that it has actually improved from 3 weeks ago. (ALEXSANDRA FORD APRN) Allergies and Home Medications Allergies Coded Allergies: hydromorphone (Verified Allergy, Mild, Itching, 05/02/22) Patient Home Medication List Home Medication List Reviewed: Yes (ALEXSANDRA FORD APRN) Azithromycin (Azithromycin) 250 Mg Tablet, 250 MG PO UD Prescribed by: JANE ANDRADE on 12/19/21 1636 Cefdinir (Cefdinir) 300 Mg Capsule, 300 MG PO BID Prescribed by: JANE ANDRADE on 12/19/21 1636 Ciprofloxacin HCl/Dexameth (Ciproflox-Dexameth Otic Susp) 0.3 %-0.1 % Drops.susp, 4 DROPS OT BID Prescribed by: Ronaldo Yen on 09/17/22 1436 Hydrochlorothiazide (Hydrochlorothiazide) 25 Mg Tablet, 25 MG PO DAILY Prescribed by: Ronaldo Yen on 09/17/22 143 Ibuprofen (Ibuprofen) 600 Mg Tablet, 600 MG PO Q6H PRN for PAIN-MILD Prescribed by: Ronaldo Yen on 09/17/22 143 Ipratropium/Albuterol Sulfate (Iprat-Albut 0.5-3(2.5) mg/3 ml) 3 Ml Ampul.neb, 3 ML IH Q4H PRN for SHORTNESS OF BREATH Prescribed by: JANE ANDRADE on 12/19/21 163 Nebulizer and Compressor (Compressor Nebulizer System) 1 Each Each, EACH MC Q4H PRN for WHEEZING, (DME) Prescribed by: JANE ANDRADE on 12/19/21 163 Ondansetron (Ondansetron Odt) 4 Mg Tab.rapdis, 4 MG SL Q4H PRN for NAUSEA/VOMITING Prescribed by: Ronaldo Yen on 09/17/22 143 Oxycodone HCl (Oxycodone HCl) 5 Mg Tablet, 5 MG PO Q4H Prescribed by: Alexsandra Cuevas on 04/13/232014 Prednisone (Prednisone) 20 Mg Tab, 20 MG PO DAILY Prescribed by: JANE ANDRADE on 12/19/21 163 Review of Systems Constitutional: see HPI (ALEXSANDRA FORD APRN) Past Flrcood-Gtlfad-Bfkflq Hx Patient Social History Tobacco Use?: Yes Smoking Status: Current Everyday Smoker Use of E-Cig and/or Vaping dev: No Substance use?: Yes Substance type: Marijuana Substance frequency: Rarely Alcohol Use?: Yes Alcohol type: Beer Alcohol Frequency: Daily (ALEXSANDRA FORD APRN) Immunizations Up To Date First/Initial COVID19 Vaccinat: vaccinated x1 Second COVID19 Vaccination [place]: NO Third COVID19 Vaccination Date: NO (ALEXSANDRA FORD APRN) Past Medical History Surgery/Hospitalization HX: HTN, Diabetes, Anemia, Neuropathy Surgeries: Yes Gallbladder Respiratory: No Cardiac: Yes Hypertension Neurological: Yes Neuropathy, Seizure Disorder Reproductive Disorders: No Genitourinary: No Gastrointestinal: No Musculoskeletal: No Endocrine: Yes Diabetes, Non-Insulin dep HEENT: No Cancer: No Psychosocial: No Integumentary: No Blood Disorders: No (ALEXSANDRA FORD APRN) Physical Exam Vital Signs Vital Signs - First Documented 04/13/23 18:40 Temp 35.9 Pulse 115 Resp 18 B/P (MAP) 146/82 (103) Pulse Ox 98 O2 Delivery Room Air (CAROL,CELY K DO) Vital Signs Capillary Refill : Less Than 3 Seconds (ALEXSANDRA FORD FLEXOGRAPHIC PRINTING MACHINIST) Height, Weight, BMI Height: '" Weight: lbs. oz. kg; 21.00 BMI Method: General Appearance: moderate distress Neck: supple, normal inspection Cardiovascular: regular rate, rhythm Respiratory: lungs clear, normal breath sounds, no respiratory distress, no accessory muscle use Shoulder: deformity (Elevation of right clavicle, looks like AC joint separation), limited ROM, pain (Pain with palpation) Neurologic/Psychiatric: alert, normal mood/affect Skin: normal color, warm/dry (ALEXSANDRA FORD FLEXOGRAPHIC PRINTING MACHINIST) Progress/Results/Core Measures Results/Orders Medications Given in ED Current Medications Medications Dose Ordered Sig/Latoya Route Start Time Stop Time Status Last Admin Dose Admin Oxycodone HCl 5 mg ONCE ONCE PO 04/13/23 19:00 04/13/23 19:01 DC 04/13/23 18:55 5 MG (CAROL,CELY K DO) Vital Signs/I&O 04/13/23 04/13/23 18:40 20:22 Temp 35.9 Pulse 115 95 Resp 18 16 B/P (MAP) 146/82 (103) 134/81 Pulse Ox 98 100 O2 Delivery Room Air Room Air (CAROL,CELY K DO) Blood Pressure Mean: 103 Progress Progress Note : Progress Note Patient seen and evaluated, resting in bed, moderate distress, crying during exam. Discharge paperwork from [facility] reviewed, it reports a clavicle fracture. Will treat patient with oxycodone and provide a shoulder immobilizer. 2007 x-ray reviewed. Acute displaced fracture of the distal right clavicle, it is displaced approximately 1 x 2.7 cm and superiorly by 2.7 cm. The acro mild clavicular joint appears intact, the glenohumeral joint is intact. The soft tissues are normal. Results discussed with patient. Will discharge with the shoulder immobilizer and prescription for oxycodone. Patient given the phone number for orthopedics and [facility] to establish a primary care provider. Discharge instructions and return precautions provided. (ALEXSANDRA FORD APRN) Diagnostic Imaging Diagonstic Imaging: Xray Plain Films/CT/US/NM/MRI: other (shoulder) Comments [facility] [place] [place] NAME: [facility] REC#: [id number] PT STATUS: REG ER : 1970 PHYSICIAN: ALEXSANDRA FORD APRN ADMIT DATE: 04/13/23/ER Signed Date of Exam:04/13/23 SHOULDER, RIGHT, 3 VIEWS EXAMINATION: Right shoulder radiographs. EXAM DATE: 04/13/2023 7:16 PM COMPARISON: None available. HISTORY: Right shoulder pain. TECHNIQUE: 3 views. FINDINGS: There is a displaced, acute fracture of the distal right clavicle with 2.7 cm of proximal and 2.7 cm of superior displacement of the distal clavicle. Acromioclavicular joint appears intact. The glenohumeral joint is intact without other acute osseous abnormality within the right shoulder. The soft tissues are normal. IMPRESSION: Acute, displaced fracture of the distal right clavicle. Dictated by: Dictated on workstation # [id number] Dict: 04/13/231924 Trans: 04/13/231932 [facility] [id number] Interpreted by: VIRGILIO BRIGGS DO Electronically signed by: VIRGILIO BRIGGS DO 04/13/231932 (ALEXSANDRA FORD APRN) Departure Impression Primary Impression: Clavicle fracture Disposition: 01 HOME, SELF-CARE Condition: Stable Departure-Patient Inst. Decision time for Depature: 20:08 (ALEXSANDRA FORD APRN) Referrals: [facility]/SUZY SOLIS MD, MICHAEL P MD Patient Instructions: Clavicle fracture Add. Discharge Instructions: Wear the shoulder immobilizer at all times, you may remove it to shower, but be careful not to move your shoulder when you are not wearing the sling. Be careful not to lay on your right side when sleeping. Take oxycodone as needed for pain, only take when needed because it can make you sleepy. It can also cause constipation. You may take 1000 mg of Tylenol every 8 hours as needed for pain. Do not take more than this amount. Follow-up with orthopedics, either Dr. Soriano or Dr. Curtis. Establish a primary care provider, I have attached the phone number for [facility], you may also try to find another private practice provider in [place]. Return for any new, concerning, or worsening symptoms. All discharge instructions reviewed with patient and/or family. Voiced understanding. Scripts Oxycodone HCl (Oxycodone HCl) 5 Mg Tablet 5 MG PO Q4H, #20 TAB 0 Refills Prov: ALEXSANDRA FORD APRN 04/13/23 ATTENDING PHYSICIAN STATEMENT: I WAS PHYSICALLY PRESENT ER PHYSICIAN, BUT I WAS NOT INVOLVED IN ANY DECISION MAKING OR ANY CARE OF THIS PATIENT AND I AM NOT COLLABORATING PHYSICIAN. (CELY MEDINA DO) ALEXSANDRA FORD APRN Apr 13, 2023 18:57 CELY MEDINA DO Apr 14, 2023 02:05
[2023-04-13] MEDS ORDERED: oxyCODONE IMMEDIATE RELEASE 5 MG TABLET PO ONE (19:00)
--- NOTE | 2023-04-13 19:31 | Diagnostic Imaging Report ---
EXAMINATION: Right shoulder radiographs. EXAM DATE: 04/13/2023 7:16 PM COMPARISON: None available. HISTORY: Right shoulder pain. TECHNIQUE: 3 views. FINDINGS: There is a displaced, acute fracture of the distal right clavicle with 2.7 cm of proximal and 2.7 cm of superior displacement of the distal clavicle. Acromioclavicular joint appears intact. The glenohumeral joint is intact without other acute osseous abnormality within the right shoulder. The soft tissues are normal. IMPRESSION: Acute, displaced fracture of the distal right clavicle. Dictated by: Dictated on workstation # [id number]
[2023-04-13] MEDS ORDERED: OXYC5TAB PO (20:14)
[2023-04-13 20:22] VITALS: BP 134/81
== END 2023-04-13 20:22 | disposition home or self-care (01) ==
LOC: EDUNIT# 18:25 → ER 18:29
DX: S42.031A Displaced fracture of lateral end of right clavicle, initial encounter for closed fracture (principal); F17.200 Nicotine dependence, unspecified, uncomplicated; Z28.310 Unvaccinated for COVID-19; Z88.5 Allergy status to narcotic agent; W06.XXXA Fall from bed, initial encounter
CPT/HCPCS: 73030